=== PATIENT | male | born 1970 | race Caucasian/White ===

== ENCOUNTER 2017-11-19 16:16 | Emergency (ER) | payer SELFPAY ==
[2017-11-19] VITALS (15 sets, daily range): BP systolic 107–158; BP diastolic 30–83; PULSE 72–106; RESP 16–23; TEMP 36.9; O2SAT 90–100
--- NOTE | 2017-11-19 16:19 | DI.REPORT_ITS ---
SYMPTOM/DIAGNOSIS: TRAUMA CHEST X-RAY: Portable AP view. Heart size and pulmonary vasculature are within normal limits. The lungs appear clear. No effusions or pneumothoraces are identified. The bones appear intact. IMPRESSION: No definite acute pulmonary process.
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
[2017-11-19 16:51] LABS: Abs Immature Grans 0.05 k/cumm (0.0-0.09); Absolute Basophil Count 0.05 k/cumm (0.0-0.2); Absolute Eosinophil Count 0.16 k/cumm (0.0-0.7); Absolute Lymphocyte Count 3.45 k/cumm (1.2-3.4); Absolute Monocyte Count 0.88 k/cumm (0.11-0.7); Absolute Neutrophil Count 3.89 k/cumm (1.2-6.7); Basophils % 0.6; Eosinophils % 1.9; HCT 40.1 % (40.0-50.0); Immature Grans % 0.6; Lymphocytes % 40.7; Mean Corp. HGB Concentration 34.9 g/dL (32.0-36.0); Mean Corpuscular Hemoglobin 35.5 pg (27.0-33.0); Mean Corpuscular Volume 101.8 fL (80-95); Monocytes % 10.4; Neutrophils % 45.8; Platelet Count 178 x1000/uL (130-400); RBC 3.94 m/cumm (4.50-6.00); RBC Distribution Width 13.5 % (11.8-14.1); White Blood Cell Count 8.48 k/cumm (4.4-10.8)
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
[2017-11-19 17:13] LABS: ALT 54 U/L (12-78); AST 51 U/L (15-37); Albumin 3.6 g/dL (3.4-5.0); Alkaline Phosphatase 105 U/L (46-116); Amylase 36 U/L (25-115); Anion Gap 10.5 mmol/L (3-11); BUN 7 mg/dL (7-18); Bilirubin, Total 0.4 mg/dL (0.2-1.0); CO2 24.5 mmol/L (21.0-32.0); CREATININE 0.78 mg/dL (0.70-1.30); Calcium 8.2 mg/dL (8.5-10.1); Chloride 101 mmol/L (98-107); ETHANOL BLOOD 269.2 mg/dL (<3); Glucose 90 mg/dL (70-100); Lipase 142 U/L (73-393); Magnesium 2.1 mg/dL (1.8-2.4); Potassium 3.8 mmol/L (3.5-5.1); Sodium 136 mmol/L (136-145); Total Protein 7.2 g/dL (6.4-8.2)
[2017-11-19 17:15] LABS: Troponin I < 0.02 ng/mL (0.00-0.06)
[2017-11-19] MEDS: Tetanus & Diphtheria Tox,ADULT 0.5 ML VIAL IM (17:34)
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
[2017-11-19] MEDS: Omnipaque 350 MG/ML 100 ML BTL IJ (17:40)
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
[2017-11-19 18:06] LABS: Bilirubin Negative (Negative); Blood Trace-lysed (Negative); Clarity Clear; Glucose Negative (Negative); Ketones Negative (Negative); Leukocyte Esterase Negative (Negative); Nitrite Negative (Negative); Specific Gravity <= 1.005 (1.005-1.025); Urobilinogen 0.2 EU/dL (Up TO 0.2); pH 5.5 (5-8)
[2017-11-19 18:18] LABS: *AMPHETAMINES SCREEN URINE Negative (Negative); *BARBITURATES SCREEN URINE Negative (Negative); *BENZODIAZEPINES SCREEN URINE Negative (Negative); Cannabinoids THC POSITIVE (Negative); Cocaine Screen,Urine Negative (Negative); METHADONE URINE SCREEN Negative (Negative); OPIATES URINE SCREEN Negative (Negative)
[2017-11-19 18:19] LABS: Tricyclic Antidepressants Negative (Negative)
[2017-11-19 18:25] LABS: Bacteria Negative HPF (Negative); C & S Indicated? No; Casts Negative LPF (Negative); Crystals Negative HPF (Negative); Epithelial Cells Negative HPF (Negative); Mucus Negative (Negative); Other Cells Negative (Negative); RBC Negative (0-2); WBC Negative HPF (0-5)
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
== END 2017-11-19 20:29 | disposition short-term general hospital (02) ==
LOC: ER 02-22 04:54
PROVIDERS: Emergency Provider Student in an Organized Health Care Education/Training Program
DX: S39.91XA Unspecified injury of abdomen, initial encounter (principal); R93.3 Abnormal findings on diagnostic imaging of other parts of digestive tract; S30.1XXA Contusion of abdominal wall, initial encounter; S00.01XA Abrasion of scalp, initial encounter; T25.222A Burn of second degree of left foot, initial encounter; F10.129 Alcohol abuse with intoxication, unspecified; Y90.8 Blood alcohol level of 240 mg/100 ml or more; S80.211A Abrasion, right knee, initial encounter; S80.212A Abrasion, left knee, initial encounter; S50.311A Abrasion of right elbow, initial encounter; S50.312A Abrasion of left elbow, initial encounter; S60.512A Abrasion of left hand, initial encounter; S90.811A Abrasion, right foot, initial encounter; R40.2412 Glasgow coma scale score 13-15, at arrival to emergency department; V28.4XXA Motorcycle driver injured in noncollision transport accident in traffic accident, initial encounter; X19.XXXA Contact with other heat and hot substances, initial encounter
CPT/HCPCS: 36415; 74177; 80053; 80307; 83690; 86850; 86900; 86901; 90471; 93005; 96365; 96366; 99285; 70450; 71045; 71260; 72125; 80320; 81003; 81015; 82150; 83735; 84484; 85025; 93010; J0690; J3490

== ENCOUNTER 2024-10-12 15:08 | Inpatient (IN) | payer SELFPAY ==
[2024-10-12] VITALS (70 sets, daily range): BP systolic 107–150; BP diastolic 45–124; PULSE 76–98; RESP 11–24; TEMP 36.6; O2SAT 81–100
--- NOTE | 2024-10-12 15:44 | DI.CT_ITS ---
Exam(s) CT ABD AORTA CTA W RUNOFF EXAM: CT ABD AORTA CTA W RUNOFF CLINICAL HISTORY: chronic wound, h/o PVD. TECHNIQUE: Imaging Protocol: Axial CT angiography was performed with multi- slice acquisition and multi-planar and/or 3D reconstructions. CONTRAST MATERIAL: Intravenous: Omnipaque 350 Contrast volume:100 ml Contrast route:IV - Oral: yes / no COMPARISON: CT RIGHT LOWER EXTREM WO CONTRAST from 03/21/2017 CT CHEST ABD PELVIS WITH CONTRAST from 11/19/2017 FINDINGS: Vascular Structures: Heart: Normal size. No visible coronary artery calcifications. Abdomen: Celiac Freedom/SMA: No evidence of stenosis. Renal Arteries: No evidence of stenosis. There is a single renal artery perfusing each kidney. Aorta: No aneurysm. No dissection. Moderate atherosclerotic changes. Pelvis: Iliac Arteries: No evidence of stenosis. Mild atherosclerotic changes Common Femoral Arteries: No evidence of stenosis. Mild atherosclerotic changes. Lower extremities: Right: Superficial Femoral: No evidence of stenosis. Mild atherosclerotic changes. Popliteal: No evidence of stenosis. Knee Trifurcation: No evidence of stenosis. Posterior Tibial: No evidence of stenosis. Peroneal: No evidence of stenosis. Dorsalis Pedis: No evidence of stenosis. Left: Common Femoral: No evidence of stenosis. Mild atherosclerotic changes. Superficial Femoral: No evidence of stenosis. Popliteal: No evidence of stenosis. Knee Trifurcation: No evidence of stenosis. Posterior Tibial: No evidence of stenosis. Peroneal: No evidence of stenosis. Dorsalis Pedis: No evidence of stenosis. Venous structures: The venous structures are not well opacified with IV contrast in due to the arterial phase imaging. There is some contrast seen in the left lower extremity veins. On a no fistula is identified. ABDOMEN PELVIS: Soft Tissues: Significant soft tissue edema throughout the left lower extremity, consistent with cellulitis. No focal abscess or gas collections. Lungs: Nonspecific scattered ground-glass opacities. Liver: Normal size. No measurable mass. Gallbladder and biliary tract: No radiodense calculus or dilation. Pancreas: Normal density, no abnormal calcifications or inflammatory process. Spleen: Normal. Kidneys: Normal size, contour and axis. No radiodense stones or obstructive uropathy. No masses seen. Adrenal glands: No masses seen. Aorta: Abdominal portion non-dilated. Bladder: Symmetric distention, no gross wall thickening. Bowel: No obstruction or bowel wall thickening. Sigmoid diverticulosis. No evidence of diverticulitis. The appendix is normal. Peritoneal cavity: No ascites, collection or mesenteric inflammatory response. Bones: Within normal limits. Reproductive: The prostate is mildly enlarged. Lymph nodes: Enlarged hyperemic lymph nodes in the left inguinal region as well as internal and external iliac chains. There also mildly enlarged left para- aortic and popliteal fossa IMPRESSION: Mild atherosclerotic changes without significant stenosis, aneurysm or dissection. Left lower extremity edema with left inguinal and iliac enlarged lymph nodes consistent with cellulitis. No visible abscess or gas collection. Mild ground-glass opacities in the lower lobes could indicate pneumonitis. The preliminary [facility] report was reviewed. RADIATION DOSE DELIVERED: Total DLP DATA REPOSITORY: All CT scans at this facility are submitted to the National Radiology Data Registry (NRDR) Dose Index Registry (DIR) with the [employer] (A[employer]). RADIATION OPTIMIZATION: All CT scans at this facility use at least one of these dose optimization techniques: automated exposure control; mA and/or kV adjustment per patient size (includes targeted exams where dose is matched to clinical indication); or iterative reconstruction.
--- NOTE | 2024-10-12 16:03 | ED.GENADUL_ITS ---
Discharge Plan Disposition Patient Disposition: Admit to [facility] Discharge Details Clinical Impression: Cellulitis and abscess of left leg, Tobacco abuse, Pulmonary nodule, Venous stasis dermatitis, DVT (deep venous thrombosis), Portal hypertension, Hepatosplenomegaly, Hyponatremia, Hypomagnesemia, Hypokalemia, Homelessness Primary Care Provider: None,None ED Provider: Lien Duong Home Meds and New Rx's Prescriptions: No Action ibuprofen 600 MG tablet 600 mg PO Q6H PRN (Reason: Pain) Qty: 16 0RF HPI General Date/Time Provider Initiated Documentation: 10/12/24 15:29 . HPI Narrative: Chente is a 54-year-old male with history of varicose vein removal and poor circulation in legs who presents to the emergency dept today accompanied by exwife for evaluation of nonhealing left lower leg wound. No inciting wound/trauma. Noticed swelling in left leg 4-6 weeks ago accompanied by significant pain in back of calf, developed ulcer after removing compression wrap 3 weeks ago. Has been managing wound with Unna boot, changing every 3 days, but wound has not healed and recently began bleeding/draining clear fluid. Has swelling and pain to foot and leg below knee, no distal numbness/tingling. Denies systemic symptoms such as fevers or chills, decreased energy levels/general malaise, CP/SOB, recent immobility/surgery, hormone therapy, h/o blood clots or cancer, decreased appetite/change in bowel/bladder function. He does admit to weight loss attributed to unemployment and reduced physical activity. Smokes tobacco, no IV drug use or MRSA infections. Open to hospitalization or transfer to [facility] if necessary. Denies significant PMH other than vascular disease; has h/o similar ulcers on same leg, previously healed (says this is worse than previous wounds). He is unhoused per exwife. Related Data Home Medications ?Medication ?Instructions ?Recorded ?Confirmed ibuprofen 600 mg tablet 600 mg PO Q6H PRN Pain ##16 03/21/17 10/12/24 Previous Rx's ?Medication ?Instructions ?Recorded ibuprofen 600 mg tablet 600 mg PO Q6H PRN Pain ##16 03/21/17 Allergies Allergy/AdvReac Type Severity Reaction Status Date / Time No Known Allergies Allergy Verified 10/12/24 15:13 General Stated Complaint: Vascular TOM: 3 Exam Narrative Exam Narrative: General Appearance: Normal. Pt is alert and oriented, in no acute distress Vital signs: Within normal limits. Respiratory: Coarse lung sounds, easy work of breathing Cardiovascular:Leyda heart sounds, regular rate and rhythm. Palpable pulse in left foot, capillary refill time ~02s. Skin: Left calf red and swollen, wound oozing clear fluid and bloody. Psychiatric: Normal. Course Vital Signs Vital signs: Vital Signs Temperature 36.6 C 10/12/24 15:14 Pulse 90 10/12/24 15:14 Respiratory Rate 18 10/12/24 15:14 Blood Pressure 129/80 10/12/24 15:14 Pulse Oximetry 99 10/12/24 15:14 Temperature 36.6 C 10/12/24 15:14 Pulse 90 10/12/24 15:14 Respiratory Rate 18 10/12/24 15:14 Blood Pressure 129/80 10/12/24 15:14 Blood Pressure Position Sitting 10/12/24 15:14 Pulse Oximetry 99 10/12/24 15:14 Oxygen Delivery Method Room Air 10/12/24 15:14 Oxygen Flow Rate 0 10/12/24 15:14 Pain Level 10 10/12/24 15:14 Lab/Test Results Lab/Test Results: 10/12/24 15:44 Blood Blood Culture - Pending 10/12/24 15:44 Blood Blood Culture - Pending Medical Decision Making Initial Assessment: 54-year-old male with left lower leg wound present for 3-4 weeks, treated with Unna boot. Initially healed but then started bleeding and oozing clear fluid. Significant pain in back of calf, red and swollen. Slight numbness in foot, but can still feel sensations. History of varicose veins and poor circulation in legs. Differential Diagnosis includes but is not limited to: venous ulcer, arterial insufficiency, coagulopathy, cellulitis. Patient does not meet sepsis criteria. No red flags concerning for necrotizing fasciitis based on timeline or history I independently interpreted the following tests: CBC notable for anemia (9.0/26.9), no leukocytosis. CMP notable for hyponatremia (126), hypochloremia (92), mild hypokalemia (3.4). Mild hypomagnesemia (1.4). Inflammatory markers slightly elevated (ESR 45, CRP 4.07) CT lower extremity with runoff significant for filling defects within the popliteal vein (DVT vs artifact), lymphadenopathy involving left lower extremity, edema/tissue swelling, portal vein enlargement consistent with portal hypertension, as well as hepatosplenomegaly. Patchy groundglass opacities/nodular densities also incidentally noted. IV fluids given for dehydration/hyponatremia. IV antibiotics (ceftriaxone) initiated as well. P.o. magnesium given for hypomagnesemia. Discussed case with Dr. Camarena, hospitalist. Patient to be admitted for treatment of electrolyte derangement and venous stasis ulcers/cellulitis. Patient is agreeable with plan of care. Patient consented to the use of [facility] Imaging Data Radiologic Study: Radiologist's impression: Addendum created by Alexey Serrano MD on 10/12/2024 6:06 PM Eastern Time ([place] & [place]): THIS REPORT CONTAINS FINDINGS THAT MAY BE CRITICAL TO PATIENT CARE. The findings were verbally communicated via telephone conference with LIEN DUONG at 6:06 PM EDT on 10/12/2024. The findings were acknowledged and understood. Initial Report created on 10/12/2024 6:06 PM Eastern Time ([place] & [place]): PROCEDURE INFORMATION: Exam: CTA Abdominal Aorta and Bilateral Lower Extremities (Run-off) With Contrast Exam date and time: 10/12/2024 4:45 PM Age: 54 years old Clinical indication: Condition or disease; Chronic wound, h/o pvd TECHNIQUE: Imaging protocol: Computed tomographic angiography of the of the abdominal aorta, pelvis and bilateral lower extremities with contrast. 3D rendering (Not supervised by radiologist): MIP and/or 3D reconstructed images were created by the technologist. COMPARISON: CT CHEST ABD PELVIS WITH CONTRAST 11/19/2017 4:50 PM FINDINGS: Aorta: The aorta demonstrates moderate atherosclerotic calcification. The abdominal aorta shows [id number] atherosclerosis with moderate atherosclerosis at its distal portion but otherwise is widely patent without evidence of significant occlusive or aneurysmal disease. Celiac trunk and mesenteric arteries: The celiac artery is widely patent without evidence of occlusive or aneurysmal disease. Superior mesenteric artery is widely patent without evidence of occlusive or aneurysmal disease.The inferior mesenteric artery is widely patent without evidence of occlusive or aneurysmal disease. Renal arteries: Single renal artery supplies the right kidney, is widely patent, without evidence of significant occlusive or aneurysmal disease. Single renal artery supplies the left kidney, is widely patent, without evidence of significant occlusive or aneurysmal disease. Right iliac arteries: The right common iliac artery, right internal iliac artery and right external iliac arteries show [id number]-kq-tyjcbvve atherosclerosis but otherwise are widely patent without evidence of significant occlusive or aneurysmal disease. Right femoral/popliteal arteries: The right common femoral artery, proximal right deep and superficial femoral arteries show mild atherosclerosis but otherwise are widely patent without evidence of significant occlusive or aneurysmal disease. The right superficial femoral artery is widely patent without evidence of thrombosis, intimal flap/dissection, pseudoaneurysm or aneurysmal dilatation. The right popliteal artery is widely patent without evidence of thrombosis, intimal flap/dissection, pseudoaneurysm or aneurysmal dilatation. Right infrapopliteal arteries: The right anterior tibial artery, the right common tibioperoneal trunk, the right peroneal artery and the right posterior tibial artery are widely patent without evidence of thrombosis, intimal flap/dissection, pseudoaneurysm or aneurysmal dilatation. Left iliac arteries: The left common iliac artery, left internal iliac artery and left external iliac arteries show [id number] atherosclerosis but otherwise are widely patent without evidence of significant occlusive or aneurysmal disease. Left femoral/popliteal arteries: The left common femoral artery, proximal left deep and superficial femoral arteries show mild atherosclerosis but otherwise are widely patent without evidence of significant occlusive or aneurysmal disease. The left superficial femoral artery is widely patent without evidence of thrombosis, intimal flap/dissection, pseudoaneurysm or aneurysmal dilatation. The left popliteal artery is widely patent without evidence of thrombosis, intimal flap/dissection, pseudoaneurysm or aneurysmal dilatation. Left infrapopliteal arteries: The left anterior tibial artery, the left common tibioperoneal trunk, the left peroneal artery and the left posterior tibial artery are widely patent without evidence of thrombosis, intimal flap/dissection, pseudoaneurysm or aneurysmal dilatation. Veins: The portal, mesenteric and splenic veins are patent.The inferior venacava appears normal. Filling defects within the left popliteal vein may represent flow artifact although acute deep venous thrombosis can not be excluded. Consider duplex Doppler for confirmation. Lungs: There are scattered patchy ground-glass opacities within the lungs. These findings are nonspecific and may represent hypoventilatory change,edema, hemorrhage, or an infectious/inflammatory process (acute or chronic). Focal ground-glass nodular density is present within the left upper lobe of the lung lingula and the left lower lobe of the lung best demonstrated on images 9 series 6 and image 1 series 6. For patients at low risk (minimal or absent history of smoking and of other known risk factors), recommend CT Chest at 3-6 months, then consider CT Chest at 18- 24 months. For patients at high risk (history of smoking or of other known risk factors), recommend CT Chest at 3-6 months, then CT Chest at 18-24 months. (Reference: Srikanth). There is heterogeneous attenuation of the pulmonary parenchyma, consistent with air trapping from underlying small airways disease. Moderate to severe emphysematous changes present within the left lower lobe of the lung. Heart: The cardiac structures are normal. Coronary arteries: No evidence of coronary artery atherosclerotic plaque or calcification. Liver: There are no focal liver lesions present. The liver is enlarged There is no evidence of intrahepatic or extrahepatic biliary ductal dilation. Gallbladder and biliary ducts: There is no evidence of biliary ductal dilation. The gallbladder is normal. There is no cholelitiasis, wall thickening or pericholecystic fluid to suggest cholecystitis. Pancreas: The pancreas is normal. Spleen: The spleen is enlarged. The spleen otherwise appears normal. Adrenal glands: The adrenal glands are normal. Kidneys and ureters: The kidneys are normal. Stomach and bowel: There is no evidence of intestinal obstruction. Appendix: A normal appendix is identified. There is no evidence of distention or periappendiceal inflammation to suggest appendicitis. Urinary bladder: The bladder is normal. Reproductive: The prostate gland demonstrates calcification and mild nonspecific enlargement. The seminal vesicles are normal. Intraperitoneal space: There is no free intraperitoneal air. There is no evidence of free intraperitoneal or pelvic fluid. Lymph nodes: There is lymphadenopathy involving the left lower extremity, left inguinal, left external iliac left internal iliac pelvic chains, periaortic and retroperitoneal lymph nodes. Bones/joints: No acute fracture. No dislocation. No evidence of osteomyelitis. Soft tissues: The right lower extremity soft tissues are unremarkable. The left lower extremity is increased in size. There is soft tissue edema and fluid present within the subcutaneous soft tissues of the left lower extremity. No definitive thick-walled focal abscess identified. No definitive enhancing There are multiple enlarged enhancing lymph nodes present within the left lower extremity extending into the left inguinal region and groin as well as the left external iliac chain and left internal iliac chain consistent with reactive lymphadenopathy and infection. There is evidence of hyperemia within the left lower extremity with increased venous return compared to the right leg. IMPRESSION: 1. Edema and soft tissue swelling with fluid and enlargement of the left lower extremity with hyperemia, lymphadenopathy consistent with longstanding infection hand cellulitis. No evidence of necrotizing fasciitis although MRI would be more sensitive study for this finding. 2. There is lymphadenopathy involving the left lower extremity, left inguinal, left external iliac left internal iliac pelvic chains, periaortic and retroperitoneal lymph nodes. 3. Filling defects within the popliteal vein may represent flow artifact although acute deep venous thrombosis can not be excluded. Consider duplex Doppler for confirmation. 4. There are scattered patchy ground-glass opacities within the lungs. These findings are nonspecific and may represent hypoventilatory change,edema, hemorrhage, or an infectious/inflammatory process (acute or chronic). 5. Focal ground-glass nodular density is present within the left upper lobe of the lung lingula and the left lower lobe of the lung best demonstrated on images 9 series 6 and image 1 series 6. For patients at low risk (minimal or absent history of smoking and of other known risk factors), recommend CT Chest at 3-6 months, then consider CT Chest at 18-24 months. For patients at high risk (history of smoking or of other known risk factors), recommend CT Chest at 3-6 months, then CT Chest at 18-24 months. (Reference: Srikanth). 6. There is heterogeneous attenuation of the pulmonary parenchyma, consistent with air trapping from underlying small airways disease. 7. There is hepatosplenomegaly. 8. The portal vein is enlarged measuring 18 mm consider portal hypertension. PFSH All Active Problems (Updated 10/12/24 @ 20:06 by Lien Rojas) Pulmonary nodule (Acute) Tobacco abuse (Chronic) Homelessness (Chronic) Hypokalemia (Acute) Hypomagnesemia (Acute) Hyponatremia (Acute) Hepatosplenomegaly (Chronic) Portal hypertension (Chronic) DVT (deep venous thrombosis) (Acute) Venous stasis dermatitis (Chronic) Cellulitis and abscess of left leg (Acute) Social History Smoking/Tobacco Use Status: Current every day Tobacco Type: cigarettes Tobacco: How many years used: 40 Smoking risk assessment performed?: Yes Alcohol Intake: current Alcohol Intake frequency: 0-2 drinks per day Alcohol type: beer Drug use: Occasionally Substance use type: marijuana, opiates and prescription drug Do you feel safe in your relationship?: Yes PAWSS Have you Been Recently Intoxicated or Drunk Within the Last 30 days?: No Have you Ever Experienced Previous Episodes of Alcohol Withdrawal?: No Have you ever Experienced Withdrawal Seizures?: No Have you ever Experienced Delirium Tremens(DT)s?: No Have you ever undergone Alcohol Rehabilitation Treatment (i.e, inpt ot outpatient treatment programs)?: No Have you ever Experienced Blackouts?: Yes Have you ever Combined Alcohol with other Downers within the last 90 days?: No Have you ever Combined Alcohol with any other Substance of Abuse during the last 90 days?: No Positive Blood Alcohol level on Presentation? [PCS.BAL]: Yes Evidence of Increased Autonomic Activity (i.e. HR>120, tremor, sweating, agitation, nausea)?: No Result: 2
[2024-10-12] MEDS: Omnipaque 350 MG/ML 100 ML BTL IJ (16:19)
[2024-10-12] MEDS: Omnipaque 350 MG/ML 50 ML BTL IJ (16:19)
[2024-10-12 16:20] LABS: Abs Immature Grans 0.12 10^3/uL (0.0-0.06); Absolute Basophil Count 0.04 10^3/uL (0.0-0.2); Absolute Eosinophil Count 0.08 10^3/uL (0.0-0.7); Absolute Lymphocyte Count 1.41 10^3/uL (1.2-3.4); Absolute Monocyte Count 0.62 10^3/uL (0.1-0.8); Absolute Neutrophil Count 7.16 10^3/uL (1.2-6.7); Basophils % 0.4 %; Eosinophils % 0.8 %; HCT 26.9 % (40.0-50.0); Immature Grans % 1.3 %; MCH 32.8 pg (27.0-33.0); MCHC 33.5 % (32.0-36.0); MCV 98 fL (80-95); MPV 9.7 fL (8.0-11.0); Monocytes % 6.6 %; Neutrophils % 75.9 %; Platelet Count 204 10^3/uL (130-400); RBC 2.74 10^6/uL (4.36-5.78); RDW 13.9 % (11.8-14.1); WBC 9.43 10^3/uL (4.4-10.8)
[2024-10-12] MEDS: Normal Saline - Diluent 50 ML VIAL IJ ×2 (16:20→16:21)
[2024-10-12 16:21] LABS: ESR 45 mm/hr (0-20)
[2024-10-12 16:36] LABS: ALT 31 U/L (16-63); AST 59 U/L (15-37); Albumin 1.6 g/dL (3.4-5.0); Alkaline Phosphatase 140 U/L (46-116); Anion Gap 5.8 mmol/L (3-11); BUN 12 mg/dL (7-18); Bilirubin, Total 0.6 mg/dL (0.2-1.0); C-Reactive Protein 4.07 mg/dL (<or=0.5); CO2 28.2 mmol/L (21.0-32.0); CREATININE 0.8 mg/dL (0.70-1.30); Calcium 7.6 mg/dL (8.5-10.1); Chloride 92 mmol/L (98-107); Estimated GFR 104.51 (mL/min/1.73m2); Glucose 94 mg/dL (74-106); Magnesium 1.3 mg/dL (1.8-2.4); Potassium 3.4 mmol/L (3.5-5.1); Sodium 126 mmol/L (136-145); Total Protein 9.1 g/dL (6.4-8.2)
--- NOTE | 2024-10-12 17:00 | RT.EKG_ITS ---
APPROVED REPORT Exam: Resting ECG Reason for Exam: electrolyte derangement Patient Location: E HR:84 bpm ECG Measurements Heart Rate 84 AXIS MA 160 P 92 QRSd 113 QRS 71 QT 386 T 74 QTc 457 Conclusion Sinus rhythm at a rate of 84 with normal intervals without acute ischemic change
[2024-10-12 17:12] LABS: INR 1.2 (0.9-1.1); PTT Activated 30.4 sec (20.6-30.2); Prothrombin Time 12.2 sec (9.1-11.1)
[2024-10-12] MEDS: Normal Saline 1,000 ML 500 ML IV (17:22)
[2024-10-12] MEDS: Magnesium Oxide 400 MG TAB PO (17:22)
--- NOTE | 2024-10-12 18:06 | DI.VRAD_ITS ---
Addendum created by Alexey Serrano MD on 10/12/2024 6:06:27 PM EDT: THIS REPORT CONTAINS FINDINGS THAT MAY BE CRITICAL TO PATIENT CARE. The findings were verbally communicated via telephone conference with WILBERTO ESTES at 6:06 PM EDT on 10/12/2024. The findings were acknowledged and understood. Initial report created on 10/12/2024 6:06:12 PM EDT: PROCEDURE INFORMATION: Exam: CTA Abdominal Aorta and Bilateral Lower Extremities (Run-off) With Contrast Exam date and time: 10/12/2024 4:45 PM Age: 54 years old Clinical indication: Condition or disease; Chronic wound, h/o pvd TECHNIQUE: Imaging protocol: Computed tomographic angiography of the of the abdominal aorta, pelvis and bilateral lower extremities with contrast. 3D rendering (Not supervised by radiologist): MIP and/or 3D reconstructed images were created by the technologist. COMPARISON: CT CHEST ABD PELVIS WITH CONTRAST 11/19/2017 4:50 PM FINDINGS: Aorta: The aorta demonstrates moderate atherosclerotic calcification. The abdominal aorta shows [id number] atherosclerosis with moderate atherosclerosis at its distal portion but otherwise is widely patent without evidence of significant occlusive or aneurysmal disease. Celiac trunk and mesenteric arteries: The celiac artery is widely patent without evidence of occlusive or aneurysmal disease. Superior mesenteric artery is widely patent without evidence of occlusive or aneurysmal disease.The inferior mesenteric artery is widely patent without evidence of occlusive or aneurysmal disease. Renal arteries: Single renal artery supplies the right kidney, is widely patent, without evidence of significant occlusive or aneurysmal disease. Single renal artery supplies the left kidney, is widely patent, without evidence of significant occlusive or aneurysmal disease. Right iliac arteries: The right common iliac artery, right internal iliac artery and right external iliac arteries show [id number] atherosclerosis but otherwise are widely patent without evidence of significant occlusive or aneurysmal disease. Right femoral/popliteal arteries: The right common femoral artery, proximal right deep and superficial femoral arteries show mild atherosclerosis but otherwise are widely patent without evidence of significant occlusive or aneurysmal disease. The right superficial femoral artery is widely patent without evidence of thrombosis, intimal flap/dissection, pseudoaneurysm or aneurysmal dilatation. The right popliteal artery is widely patent without evidence of thrombosis, intimal flap/dissection, pseudoaneurysm or aneurysmal dilatation. Right infrapopliteal arteries: The right anterior tibial artery, the right common tibioperoneal trunk, the right peroneal artery and the right posterior tibial artery are widely patent without evidence of thrombosis, intimal flap/dissection, pseudoaneurysm or aneurysmal dilatation. Left iliac arteries: The left common iliac artery, left internal iliac artery and left external iliac arteries show [id number] atherosclerosis but otherwise are widely patent without evidence of significant occlusive or aneurysmal disease. Left femoral/popliteal arteries: The left common femoral artery, proximal left deep and superficial femoral arteries show mild atherosclerosis but otherwise are widely patent without evidence of significant occlusive or aneurysmal disease. The left superficial femoral artery is widely patent without evidence of thrombosis, intimal flap/dissection, pseudoaneurysm or aneurysmal dilatation. The left popliteal artery is widely patent without evidence of thrombosis, intimal flap/dissection, pseudoaneurysm or aneurysmal dilatation. Left infrapopliteal arteries: The left anterior tibial artery, the left common tibioperoneal trunk, the left peroneal artery and the left posterior tibial artery are widely patent without evidence of thrombosis, intimal flap/dissection, pseudoaneurysm or aneurysmal dilatation. Veins: The portal, mesenteric and splenic veins are patent.The inferior venacava appears normal. Filling defects within the left popliteal vein may represent flow artifact although acute deep venous thrombosis can not be excluded. Consider duplex Doppler for confirmation. Lungs: There are scattered patchy ground-glass opacities within the lungs. These findings are nonspecific and may represent hypoventilatory change,edema, hemorrhage, or an infectious/inflammatory process (acute or chronic). Focal ground-glass nodular density is present within the left upper lobe of the lung lingula and the left lower lobe of the lung best demonstrated on images 9 series 6 and image 1 series 6. For patients at low risk (minimal or absent history of smoking and of other known risk factors), recommend CT Chest at 3-6 months, then consider CT Chest at 18-24 months. For patients at high risk (history of smoking or of other known risk factors), recommend CT Chest at 3-6 months, then CT Chest at 18-24 months. (Reference: Srikanth). There is heterogeneous attenuation of the pulmonary parenchyma, consistent with air trapping from underlying small airways disease. Moderate to severe emphysematous changes present within the left lower lobe of the lung. Heart: The cardiac structures are normal. Coronary arteries: No evidence of coronary artery atherosclerotic plaque or calcification. Liver: There are no focal liver lesions present. The liver is enlarged There is no evidence of intrahepatic or extrahepatic biliary ductal dilation. Gallbladder and biliary ducts: There is no evidence of biliary ductal dilation. The gallbladder is normal. There is no cholelitiasis, wall thickening or pericholecystic fluid to suggest cholecystitis. Pancreas: The pancreas is normal. Spleen: The spleen is enlarged. The spleen otherwise appears normal. Adrenal glands: The adrenal glands are normal. Kidneys and ureters: The kidneys are normal. Stomach and bowel: There is no evidence of intestinal obstruction. Appendix: A normal appendix is identified. There is no evidence of distention or periappendiceal inflammation to suggest appendicitis. Urinary bladder: The bladder is normal. Reproductive: The prostate gland demonstrates calcification and mild nonspecific enlargement. The seminal vesicles are normal. Intraperitoneal space: There is no free intraperitoneal air. There is no evidence of free intraperitoneal or pelvic fluid. Lymph nodes: There is lymphadenopathy involving the left lower extremity, left inguinal, left external iliac left internal iliac pelvic chains, periaortic and retroperitoneal lymph nodes. Bones/joints: No acute fracture. No dislocation. No evidence of osteomyelitis. Soft tissues: The right lower extremity soft tissues are unremarkable. The left lower extremity is increased in size. There is soft tissue edema and fluid present within the subcutaneous soft tissues of the left lower extremity. No definitive thick-walled focal abscess identified. No definitive enhancing There are multiple enlarged enhancing lymph nodes present within the left lower extremity extending into the left inguinal region and groin as well as the left external iliac chain and left internal iliac chain consistent with reactive lymphadenopathy and infection. There is evidence of hyperemia within the left lower extremity with increased venous return compared to the right leg. IMPRESSION: 1. Edema and soft tissue swelling with fluid and enlargement of the left lower extremity with hyperemia, lymphadenopathy consistent with longstanding infection hand cellulitis. No evidence of necrotizing fasciitis although MRI would be more sensitive study for this finding. 2. There is lymphadenopathy involving the left lower extremity, left inguinal, left external iliac left internal iliac pelvic chains, periaortic and retroperitoneal lymph nodes. 3. Filling defects within the popliteal vein may represent flow artifact although acute deep venous thrombosis can not be excluded. Consider duplex Doppler for confirmation. 4. There are scattered patchy ground-glass opacities within the lungs. These findings are nonspecific and may represent hypoventilatory change,edema, hemorrhage, or an infectious/inflammatory process (acute or chronic). 5. Focal ground-glass nodular density is present within the left upper lobe of the lung lingula and the left lower lobe of the lung best demonstrated on images 9 series 6 and image 1 series 6. For patients at low risk (minimal or absent history of smoking and of other known risk factors), recommend CT Chest at 3-6 months, then consider CT Chest at 18-24 months. For patients at high risk (history of smoking or of other known risk factors), recommend CT Chest at 3-6 months, then CT Chest at 18-24 months. (Reference: Srikanth). 6. There is heterogeneous attenuation of the pulmonary parenchyma, consistent with air trapping from underlying small airways disease. 7. There is hepatosplenomegaly. 8. The portal vein is enlarged measuring 18 mm consider portal hypertension. REFERENCES: Srikanth Rasmussen, et al. Guidelines for Management of Incidental Pulmonary Nodules Detected on CT Images: From the Fleischner Society 2017. Radiology. 2017;284(1):228-243. Dictated and Authenticated by: Alexey Serrano MD. Orderin Deven Emmanuel MD
--- NOTE | 2024-10-12 18:24 | W.PM.HP.N ---
Date of service: 10/12/24 Time of Service: 18:24 Assessment and Plan Assessment and plan (1) Cellulitis and abscess of left leg: Start date: 10/12/24 Status: Acute Assessment and plan: This is a 54-year-old woman who has not seen a physician in a while who presents with nonhealing ulcer of his left lower extremity with chronic venous stasis. He does not have any systemic symptoms with a normal WBC and no fever. He does have pain but imaging did not suggest fasciitis. He does have probable chronic venous stasis which is poorly controlled. He is working daily according to the patient that works outside. He does drink alcohol daily and did have a low alcohol level upon admission. Urine drug screen was negative with no history of illicit drug use. Blood cultures were performed and patient was initiated on ceftriaxone. He will be admitted for wound care and continue IV antibiotic therapy expanding therapy if he is not responding. Chronically he will need to have better compression of his venous stasis in his legs. He has suggestion of a left popliteal DVT and will be treated with IV heparin infusion instead of Lovenox because of possibility of complication with GI bleed since he appears to have enlarged liver and spleen by imaging with portal hypertension. He may have alcoholic cirrhosis or acute alcoholic hepatitis. He may be out of process with lymphadenopathy though most of this is associated with his left lower extremity inflammation. Wound care will take care of the patient while hospitalized and long-term home care may be necessary. He is a full code. (2) DVT (deep venous thrombosis): Start date: 10/12/24 Status: Acute Assessment and plan: This is significant and not confirmed. IV heparin infusion and adjusting as needed especially if evidence of GI bleed with apparent portal hypertension and possible esophageal varices. There is no evidence of bleeding presently. Convert to oral therapy once patient is stable. This appears to be provoked if present because of chronic edema and recent infection with pain in the calf prior to ulcerative wound appeared. (3) Hyponatremia: Start date: 10/12/24 Status: Acute Assessment and plan: Most likely secondary to nutrition and chronic alcohol use. IV hydration and monitor while hospitalized. (4) Hypomagnesemia: Start date: 10/12/24 Status: Acute Assessment and plan: Most likely nutritional and associate with alcohol use daily. Replete and follow-up lab daily. (5) Hypokalemia: Start date: 10/12/24 Status: Acute Assessment and plan: Once again most likely nutritional and associated alcohol use. Follow-up lab in the morning with repletion IV. (6) Pulmonary nodule: Start date: 10/12/24 Status: Acute Assessment and plan: This is a nodule significant because the patient's tobacco use and will require follow-up. It may be inflammatory and patient is also being treated for possible inflammatory infiltrates with doxycycline along with Rocephin IV (7) Tobacco abuse: Status: Chronic Assessment and plan: Nicotine patch while hospitalized. Long-term should stop smoking. (8) Venous stasis dermatitis: Status: Chronic Assessment and plan: Low protein level and poor nutrition. Also patient has a history of varicose veins. Long-term she does have compression stockings and take better care of his skin. (9) Portal hypertension: Status: Chronic Assessment and plan: Likely associated with alcoholic hepatitis or cirrhosis chronically. She did establish with PCP and follow-up with GI for further evaluation and management. Cessation of alcohol would be appropriate.. (10) Hepatosplenomegaly: Status: Chronic Assessment and plan: This may be chronic and associate with alcohol use with portal hypertension. Patient could have another process and close monitoring with follow-up specialty care would be appropriate. 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 Patient states he does live with a friend presently. History of Present Illness History of Present Illness Chief Complaint: Swelling left lower extremity for 4 weeks treated with Unna boot, now ulcer Narrative: This is a 54-year-old male patient who is homeless but living with a friend working outside almost daily according to patient though his ex- said he was on the house and not working. He has a history of varicose veins in his left leg past been swollen in the past but responded to compression stockings. He had increased swelling with pain below his knee 3 to 4 weeks prior to this presentation and was treating it with a compression wrap and Unna boot with initial healing but now there is an ulcer which is nonhealing, open and draining clear fluid with some bloody material. It is worsening with swelling and pain. He denies any fever or chills. His left leg does swell more than his right leg. Both legs do have venous stasis changes but the left leg due to the one that has ulcers. It did respond to treatment in the past but is not responding to treatment presently. He does not mention being on antibiotics. He does drink alcohol almost daily. Not had alcohol withdrawal problems. He does not take illicit drugs. He has lost weight because of decreased food availability. He also does smoke tobacco daily. He denies any other acute problems. He has a full code. Review of Systems Narrative: 13 point review of systems otherwise unrevealing or stable. PFSH All Active Problems Pulmonary nodule (Acute) Tobacco abuse (Chronic) Homelessness (Chronic) Hypokalemia (Acute) Hypomagnesemia (Acute) Hyponatremia (Acute) Hepatosplenomegaly (Chronic) Portal hypertension (Chronic) DVT (deep venous thrombosis) (Acute) Venous stasis dermatitis (Chronic) Cellulitis and abscess of left leg (Acute) Social History Smoking/Tobacco Use Status: Current every day Tobacco Type: cigarettes Tobacco: How many years used: 40 Smoking risk assessment performed?: Yes Alcohol Intake: current Alcohol Intake frequency: 0-2 drinks per day Alcohol type: beer Drug use: Occasionally Substance use type: marijuana, opiates and prescription drug Do you feel safe in your relationship?: Yes Meds Allergies and Home Medications Allergies Allergy/AdvReac Type Severity Reaction Status Date / Time No Known Allergies Allergy Verified 10/12/24 15:13 Home Medications ?Medication ?Instructions ?Recorded ?Confirmed ?Type ibuprofen 600 mg tablet 600 mg PO Q6H PRN Pain ##16 03/21/17 10/12/24 Rx Exam Narrative Exam Narrative: General: Patient appears older than stated age, moderately obese over the trunk especially, alert and oriented x 3 and in no acute distress. HEENT: Normocephalic with coarsened facial features, eyes with pupils equal and reactive to light symmetrically, extraocular movement intact and sclera anicteric. Oropharynx with dry mucosa and poor dentition with most of his teeth missing and remaining teeth carious and fractured. Neck: Supple without JVD. Back: To posture without CVA tenderness. Lungs: Fair aeration with bronchovesicular breath sounds diffusely, no focalizing rales or rhonchi. No expiratory wheeze. Normal expiratory phase. Heart: Regular rate and rhythm with no murmurs or gallops appreciated. Abdomen: Mildly obese, soft and nontender to palpation with no palpable hepatosplenomegaly. No guarding or rebound. Bowel sounds positive all quadrants. Genitalia/rectal: Exam deferred. Extremities: 3+ nonpitting edema left lower extremity with erythema and almost ecchymotic areas over the ankle and foot and open ulcers extensively over the leg area and calf with dry bandage at the time my exam. (See picture in ED note) right leg with 1+ nonpitting edema but loss of hair and chronic venous stasis changes over the leg and foot. No cyanosis or clubbing. Fair capillary refill. Skin: Skin changes with ulcer over left leg and no ulcer but skin changes over right leg as mentioned. Otherwise darkly tanned diffusely, warm and dry. Neuro: Cranial nerves II through XII gross intact, no focal motor deficits and no tremor. Psych: Flat affect with depressed mood. No abnormal thought processes. Slow monotonous tone to voice. Remote and recent memory grossly intact. Results Imaging Imaging Studies: Exam: CTA Abdominal Aorta and Bilateral Lower Extremities (Run-off) With Contrast Exam date and time: 10/12/2024 4:45 PM Age: 54 years old Clinical indication: Condition or disease; Chronic wound, h/o pvd TECHNIQUE: Imaging protocol: Computed tomographic angiography of the of the abdominal aorta, pelvis and bilateral lower extremities with contrast. 3D rendering (Not supervised by radiologist): MIP and/or 3D reconstructed images were created by the technologist. COMPARISON: CT CHEST ABD PELVIS WITH CONTRAST 11/19/2017 4:50 PM FINDINGS: Aorta: The aorta demonstrates moderate atherosclerotic calcification. The abdominal aorta shows [id number] atherosclerosis with moderate atherosclerosis at its distal portion but otherwise is widely patent without evidence of significant occlusive or aneurysmal disease. Celiac trunk and mesenteric arteries: The celiac artery is widely patent without evidence of occlusive or aneurysmal disease. Superior mesenteric artery is widely patent without evidence of occlusive or aneurysmal disease.The inferior mesenteric artery is widely patent without evidence of occlusive or aneurysmal disease. Renal arteries: Single renal artery supplies the right kidney, is widely patent, without evidence of significant occlusive or aneurysmal disease. Single renal artery supplies the left kidney, is widely patent, without evidence of significant occlusive or aneurysmal disease. Right iliac arteries: The right common iliac artery, right internal iliac artery and right external iliac arteries show [id number] atherosclerosis but otherwise are widely patent without evidence of significant occlusive or aneurysmal disease. Right femoral/popliteal arteries: The right common femoral artery, proximal right deep and superficial femoral arteries show mild atherosclerosis but otherwise are widely patent without evidence of significant occlusive or aneurysmal disease. The right superficial femoral artery is widely patent without evidence of thrombosis, intimal flap/dissection, pseudoaneurysm or aneurysmal dilatation. The right popliteal artery is widely patent without evidence of thrombosis, intimal flap/dissection, pseudoaneurysm or aneurysmal dilatation. Right infrapopliteal arteries: The right anterior tibial artery, the right common tibioperoneal trunk, the right peroneal artery and the right posterior tibial artery are widely patent without evidence of thrombosis, intimal flap/dissection, pseudoaneurysm or aneurysmal dilatation. Left iliac arteries: The left common iliac artery, left internal iliac artery and left external iliac arteries show [id number] atherosclerosis but otherwise are widely patent without evidence of significant occlusive or aneurysmal disease. Left femoral/popliteal arteries: The left common femoral artery, proximal left deep and superficial femoral arteries show mild atherosclerosis but otherwise are widely patent without evidence of significant occlusive or aneurysmal disease. The left superficial femoral artery is widely patent without evidence of thrombosis, intimal flap/dissection, pseudoaneurysm or aneurysmal dilatation. The left popliteal artery is widely patent without evidence of thrombosis, intimal flap/dissection, pseudoaneurysm or aneurysmal dilatation. Left infrapopliteal arteries: The left anterior tibial artery, the left common tibioperoneal trunk, the left peroneal artery and the left posterior tibial artery are widely patent without evidence of thrombosis, intimal flap/dissection, pseudoaneurysm or aneurysmal dilatation. Veins: The portal, mesenteric and splenic veins are patent.The inferior venacava appears normal. Filling defects within the left popliteal vein may represent flow artifact although acute deep venous thrombosis can not be excluded. Consider duplex Doppler for confirmation. Lungs: There are scattered patchy ground-glass opacities within the lungs. These findings are nonspecific and may represent hypoventilatory change,edema, hemorrhage, or an infectious/inflammatory process (acute or chronic). Focal ground-glass nodular density is present within the left upper lobe of the lung lingula and the left lower lobe of the lung best demonstrated on images 9 series 6 and image 1 series 6. For patients at low risk (minimal or absent history of smoking and of other known risk factors), recommend CT Chest at 3-6 months, then consider CT Chest at 18-24 months. For patients at high risk (history of smoking or of other known risk factors), recommend CT Chest at 3-6 months, then CT Chest at 18-24 months. (Reference: Srikanth). There is heterogeneous attenuation of the pulmonary parenchyma, consistent with air trapping from underlying small airways disease. Moderate to severe emphysematous changes present within the left lower lobe of the lung. Heart: The cardiac structures are normal. Coronary arteries: No evidence of coronary artery atherosclerotic plaque or calcification. Liver: There are no focal liver lesions present. The liver is enlarged There is no evidence of intrahepatic or extrahepatic biliary ductal dilation. Gallbladder and biliary ducts: There is no evidence of biliary ductal dilation. The gallbladder is normal. There is no cholelitiasis, wall thickening or pericholecystic fluid to suggest cholecystitis. Pancreas: The pancreas is normal. Spleen: The spleen is enlarged. The spleen otherwise appears normal. Adrenal glands: The adrenal glands are normal. Kidneys and ureters: The kidneys are normal. Stomach and bowel: There is no evidence of intestinal obstruction. Appendix: A normal appendix is identified. There is no evidence of distention or periappendiceal inflammation to suggest appendicitis. Urinary bladder: The bladder is normal. Reproductive: The prostate gland demonstrates calcification and mild nonspecific enlargement. The seminal vesicles are normal. Intraperitoneal space: There is no free intraperitoneal air. There is no evidence of free intraperitoneal or pelvic fluid. Lymph nodes: There is lymphadenopathy involving the left lower extremity, left inguinal, left external iliac left internal iliac pelvic chains, periaortic and retroperitoneal lymph nodes. Bones/joints: No acute fracture. No dislocation. No evidence of osteomyelitis. Soft tissues: The right lower extremity soft tissues are unremarkable. The left lower extremity is increased in size. There is soft tissue edema and fluid present within the subcutaneous soft tissues of the left lower extremity. No definitive thick-walled focal abscess identified. No definitive enhancing There are multiple enlarged enhancing lymph nodes present within the left lower extremity extending into the left inguinal region and groin as well as the left external iliac chain and left internal iliac chain consistent with reactive lymphadenopathy and infection. There is evidence of hyperemia within the left lower extremity with increased venous return compared to the right leg. IMPRESSION: 1. Edema and soft tissue swelling with fluid and enlargement of the left lower extremity with hyperemia, lymphadenopathy consistent with longstanding infection hand cellulitis. No evidence of necrotizing fasciitis although MRI would be more sensitive study for this finding. 2. There is lymphadenopathy involving the left lower extremity, left inguinal, left external iliac left internal iliac pelvic chains, periaortic and retroperitoneal lymph nodes. 3. Filling defects within the popliteal vein may represent flow artifact although acute deep venous thrombosis can not be excluded. Consider duplex Doppler for confirmation. 4. There are scattered patchy ground-glass opacities within the lungs. These findings are nonspecific and may represent hypoventilatory change,edema, hemorrhage, or an infectious/inflammatory process (acute or chronic). 5. Focal ground-glass nodular density is present within the left upper lobe of the lung lingula and the left lower lobe of the lung best demonstrated on images 9 series 6 and image 1 series 6. For patients at low risk (minimal or absent history of smoking and of other known risk factors), recommend CT Chest at 3-6 months, then consider CT Chest at 18-24 months. For patients at high risk (history of smoking or of other known risk factors), recommend CT Chest at 3-6 months, then CT Chest at 18-24 months. (Reference: Srikanth). 6. There is heterogeneous attenuation of the pulmonary parenchyma, consistent with air trapping from underlying small airways disease. 7. There is hepatosplenomegaly. 8. The portal vein is enlarged measuring 18 mm consider portal hypertension. Labs 10/13/24 03:50 10/13/24 03:50 Labs: Laboratory Results - last 24 hr 10/12/24 10/12/24 16:10 16:56 WBC 9.43 RBC 2.74 L Hgb 9.0 L Hct 26.9 L MCV 98 H MCH 32.8 MCHC 33.5 RDW 13.9 Plt Count 204 MPV 9.7 Immature Gran % 1.3 Neutrophils % 75.9 Lymphocytes % 15.0 Monocytes % 6.6 Eosinophils % 0.8 Basophils % 0.4 Nucleated RBC % 0.0 Absolute Neutrophils 7.16 H Absolute Lymphocytes 1.41 Absolute Monocytes 0.62 Absolute Eosinophils 0.08 Absolute Basophils 0.04 ESR 45 H PT 12.2 H INR 1.2 H APTT 30.4 H Sodium 126 L Potassium 3.4 L Chloride 92 L Carbon Dioxide 28.2 Anion Gap 5.8 BUN 12 Creatinine 0.8 Est GFR (CKD-EPI 2020) 104.51 Glucose 94 Calcium 7.6 L Magnesium 1.3 L Total Bilirubin 0.6 AST 59 H ALT 31 Alkaline Phosphatase 140 H C-Reactive Protein 4.07 H Total Protein 9.1 H Albumin 1.6 L Add-On Test Request Cancelled Last Vital Signs Temp 36.6 C 10/12/24 15:14 Pulse 82 10/12/24 17:31 Resp 12 10/12/24 17:31 BP 116/65 10/12/24 17:31 Pulse Ox 99 10/12/24 17:31 PAWSS Have you Been Recently Intoxicated or Drunk Within the Last 30 days?: No Have you Ever Experienced Previous Episodes of Alcohol Withdrawal?: No Have you ever Experienced Withdrawal Seizures?: No Have you ever Experienced Delirium Tremens(DT)s?: No Have you ever undergone Alcohol Rehabilitation Treatment (i.e, inpt ot outpatient treatment programs)?: No Have you ever Experienced Blackouts?: Yes Have you ever Combined Alcohol with other Downers within the last 90 days?: No Have you ever Combined Alcohol with any other Substance of Abuse during the last 90 days?: No Positive Blood Alcohol level on Presentation? [PCS.BAL]: Yes Evidence of Increased Autonomic Activity (i.e. HR>120, tremor, sweating, agitation, nausea)?: No Result: 2 Time Spent Time spent with Patient: >75 minutes Time was spent: preparing to see the patient(eg.review tests), obtaining and/or reviewing separately otained hiistory, ordering medications,tests, procedures, indepentently interpreting results, counseling the patient and care coordination
[2024-10-12 18:44] LABS: ETHANOL BLOOD 30.9 mg/dL (<10)
[2024-10-12 18:54] LABS: NT-proBNP 337 pg/mL (<300)
[2024-10-12] MEDS: Nicotine 4 MG GUM CH (18:56)
[2024-10-12] MEDS: Nicotine 21 MG/24 HR PATCH TD (18:56)
[2024-10-12] MEDS: cefTRIAXone 1 GM/50 ML BAG IVPB (18:56)
[2024-10-12 19:55] LABS: COVID-19 PCR Negative (Negative); Influenza A PCR Negative (Negative); Influenza B PCR Negative (Negative); RSV PCR Negative (Negative)
[2024-10-12 20:03] LABS: Source Nasopharynx
[2024-10-12 20:30] LABS: Bilirubin Negative (Negative); Blood Negative (Negative); Clarity Clear (Clear); Glucose Negative (Negative); Ketones Negative (Negative); Leukocyte Esterase Negative (Negative); Nitrite Negative (Negative); Specific Gravity <= 1.005 (1.005-1.025)
[2024-10-12 20:42] LABS: Bacteria Rare HPF (Negative); C & S Indicated? No; Casts Negative LPF (Negative); Crystals Negative HPF (Negative); Epithelial Cells Rare HPF (Negative); Mucus Moderate (Negative); Other Cells Rare Transitional (Negative); RBC 0-2 HPF (0-2); WBC 0-2 HPF (0-5)
[2024-10-12 20:45] LABS: *AMPHETAMINES SCREEN URINE Negative (Negative); *BARBITURATES SCREEN URINE Negative (Negative); *BENZODIAZEPINES SCREEN URINE Negative (Negative); Cannabinoids THC Negative (Negative); Cocaine Screen,Urine Negative (Negative); METHADONE URINE SCREEN Negative (Negative); OPIATES URINE SCREEN Negative (Negative)
[2024-10-12 20:51] LABS: Tricyclic Antidepressants Negative (Negative)
[2024-10-12] MEDS: Heparin in 0.45% NaCl 25,000 UNIT/250 ML BAG 14 UNIT IVINF (21:40)
[2024-10-12] MEDS: DOXYCYCLINE 100 MG in Normal Saline 100 ML IVPB (21:44)
[2024-10-12 22:00] LABS: HCT 24.2 % (40.0-50.0); HGB 8.2 g/dL (13.5-17.5); MCH 32.7 pg (27.0-33.0); MCHC 33.9 % (32.0-36.0); MCV 96 fL (80-95); MPV 9.8 fL (8.0-11.0); Platelet Count 173 10^3/uL (130-400); RBC 2.51 10^6/uL (4.36-5.78); RDW 13.9 % (11.8-14.1); RDW-SD 49.3 fL; WBC 6.92 10^3/uL (4.4-10.8)
[2024-10-12] MEDS: Lactated Ringers 1,000 ML 125 ML IV (22:11)
[2024-10-12] MEDS: MAGNESIUM SULFATE 4 GM/100 ML BAG IV_INF (22:11)
[2024-10-12] MEDS: POTASSIUM CHLORIDE 10 MEQ/100 ML BAG 100 MEQ IV_INF (22:42)
[2024-10-13] VITALS (99 sets, daily range): BP systolic 106–142; BP diastolic 45–102; PULSE 61–99; RESP 14–29; TEMP 36.8–37.5; O2SAT 97–100
[2024-10-13 04:10] LABS: HCT 23.6 % (40.0-50.0); MCH 33.3 pg (27.0-33.0); MCHC 33.9 % (32.0-36.0); MCV 98 fL (80-95); MPV 10.1 fL (8.0-11.0); Platelet Count 172 10^3/uL (130-400); RDW 14.1 % (11.8-14.1); RDW-SD 51.8 fL; WBC 7.35 10^3/uL (4.4-10.8)
[2024-10-13 04:15] LABS: INR 1.2 (0.9-1.1); Prothrombin Time 12.3 sec (9.1-11.1)
[2024-10-13 04:32] LABS: ALT 27 U/L (16-63); AST 57 U/L (15-37); Albumin 1.1 g/dL (3.4-5.0); Alkaline Phosphatase 110 U/L (46-116); BUN 11 mg/dL (7-18); Bilirubin, Total 0.4 mg/dL (0.2-1.0); CREATININE 0.7 mg/dL (0.70-1.30); Calcium 7.4 mg/dL (8.5-10.1); Chloride 99 mmol/L (98-107); Estimated GFR 108.82 (mL/min/1.73m2); Glucose 98 mg/dL (74-106); Magnesium 2.2 mg/dL (1.8-2.4); Sodium 129 mmol/L (136-145); Total Protein 7.5 g/dL (6.4-8.2)
[2024-10-13 04:58] LABS: PTT Activated > 155.0 sec (20.6-30.2)
[2024-10-13] MEDS: Nicotine 21 MG/24 HR PATCH TD (07:13)
[2024-10-13] MEDS: DOXYCYCLINE 100 MG in Normal Saline 100 ML IVPB (10:34)
--- NOTE | 2024-10-13 10:50 | PDOC.CMIN ---
Date of service: 10/13/24 Time of Service: 10:50 Care Management Initial Assmt Initial Assessment Reason for Hospitalization: leg wound Functional Status/Living Situation Patient Presentation: Percy was lying in bed when CM met with him. He stated that he is doing well today. He reported that he has had this wound on his leg for weeks, but it started bleeding, and he didn't feel that he could manage it at home, so he came to the ED for evaluation. He stated that he has not had a PCP in 11 years, but is agreeable to a referral for a hospital follow up with the energy operations vice president provider. He reported that he is living with friends in [facility] currently. He is not working, and is fairly independent, but does not drive. He stated that per MD, he would remain overnight and will have an ultrasound tomorrow. CM will send a referral to [facility] for insurance navigation. CM will continue to follow. Town of Residence: [place] Resides with: Other (unhoused, staying with friends) Significant Other/Family: Local Natural Supports: daughterZoë ex-, Addie Employment Status: Unemployed Instrumental Activities of Daily Living (ADLs): Independent Medications Medication Management: No Issues/Barriers identified Physical Functioning/Mobility Assistive Device: Unna Boot for leg wound Advance Directives Advance Directives: Do you have an Advance Directive: N 03/21/17, 13:27 AD On File at [facility]: N 03/21/17, 13:27 Date Asked 10/12/24 10/12/24, 15:18 AD Date Reviewed COLST On File at [facility] No 10/12/24, 15:18 COLST Date Scanned Code Status Resuscitation Status Full Code Insurance Coverage/Financial Issues Insurance: self pay Financial Issues: CM will send a [facility] referral for insurance navigation Care Team Visit Care Team Role Provider Type Raji Wesley MD MD [facility] STAFF PHYSICIAN None None Primary Care Provider [facility] STAFF PHYSICIAN Lien Rojas Emergency Provider NURSE PRACTITIONER Ramez Camarena Admit Provider NON-[facility] STAFF PHYSICIAN Attending Provider Discharge Potential Discharge Needs: PCP F/U Appt (hospital f/u with energy operations vice president provider- Shreya Brown) Anticipated Barriers to Discharge: None Identified Patient/Family Education Needs: Review discharge instructions, discuss Ask Me Three Transportation: Private vehicle Plan: Anticipate Percy will return home once medically cleared. He will be transported via private vehicle by family/friend vs [facility]. He will follow up with his PCP and discharge plan of care. CM will continue to follow. Social Determinants of Health Screening Social Determinants of health last assessed in clinic: 10/13/24 Will the Patient Participate in the Screening?: Yes Do you worry about having a steady place to live?: no Problems where you live: no known problems In the past 12 months, have you had to go without electric, gas, oil or water in your home?: no 1. Within the past 12 months, we worried whether our food would run out before we got money to buy more.: Don't know/refused 2. Within the past 12 months, the food we bought just didn't last and we didn't have money to get more.: Don't know/refused Has lack of transportation kept you from medical appointments or from doing things needed for daily living?: no Has anyone in your life made you feel unsafe or unsupported?: no How hard is it for you to pay for the very basics like food, housing, medical care, and heating? Would you say it is:: Not hard at all Do you want help finding or keeping work or a job?: I do not need or want help If for any reason you need help with day-to-day activities such as bathing, preparing meals, shopping, managing finances, etc., do you get the help you need?: I don?t need any help How often do you feel lonely or isolated from those around you?: Never Do you speak a language other than Macedonian at home?: No Does the patient want assistance with any of the above?: No PFSH All Active Problems (Updated 10/13/24 @ 12:13 by Raji Wesley MD) Chronic wound (Acute) Pulmonary nodule (Acute) Tobacco abuse (Chronic) Homelessness (Chronic) Hypokalemia (Acute) Hypomagnesemia (Acute) Hyponatremia (Acute) Hepatosplenomegaly (Chronic) Portal hypertension (Chronic) DVT (deep venous thrombosis) (Acute) Venous stasis dermatitis (Chronic) Cellulitis and abscess of left leg (Acute) Social History Smoking/Tobacco Use Status: Current every day Tobacco Type: cigarettes Tobacco: How many years used: 40 Smoking risk assessment performed?: Yes Alcohol Intake: current Alcohol Intake frequency: 0-2 drinks per day Alcohol type: beer Drug use: Occasionally Substance use type: marijuana, opiates and prescription drug Housing: homeless Do you feel safe in your relationship?: Yes
--- NOTE | 2024-10-13 11:26 | W.PC.ACHO ---
Registration Status: ADM IN Primary Language: Preferred Language: [place] ED Information & Data Chief Complaint Vascular 10/12/24 16:13 Triage Note Has wound on back of left 10/12/24 15:14 calf. Has been there for several weeks. Ex ( present) reports large weight loss as well. Pt has known vascular issues. Has no PCP. Denies any recent fevers. Wound has been draining and bleeding, has been over 10 years since tetanus. 01/24 pain in leg, took ibuprofen 6 hours SHIFT MGR. Most Recent Vital Signs Temperature 36.6 C 10/12/24 15:14 Pulse 84 10/13/24 06:50 Pulse 80 10/13/24 05:30 Respiratory Rate 21 10/13/24 06:50 Respiratory Effort Normal, Non-Labored 10/12/24 16:28 Respiratory Depth Normal 10/12/24 16:28 Respiratory Pattern Normal 10/13/24 02:11 Blood Pressure 120/73 10/13/24 02:46 Blood Pressure Mean 87 10/13/24 02:46 Blood Pressure Position Sitting 10/12/24 15:14 Pulse Oximetry 100 10/13/24 06:50 Oxygen Delivery Method Room Air 10/12/24 15:14 Oxygen Flow Rate 0 10/12/24 15:14 Pain Level 5 10/12/24 16:28 Allergies No Known Allergies Allergy (Verified 10/12/24 15:13) Precautions Isolation Contact precaution 10/12/24 15:20 Active Medications Generic Name Dose Route Start Last Admin Trade Name Freq PRN Reason Stop Dose Admin Heparin Sodium/Sodium Chloride 25,000 unit in 250 mls @ 14 mls/hr 10/12/24 21:29 10/13/24 06:02 IVINF 1,150 units/hr INFUSION KENNETH 11.5 mls/hr Protocol Titration 1,400 UNITS/HR Doxycycline Hyclate 100 mg/ 100 mls @ 100 mls/hr 10/12/24 21:30 10/13/24 10:34 Sodium Chloride IVPB 100 mls/hr Q12H KENNETH Administration Ringer's Solution 1,000 mls @ 125 mls/hr 10/12/24 21:45 10/13/24 06:18 IV Infused INFUSION KENNETH Infusion Iohexol 100 ml 10/12/24 16:30 10/12/24 16:19 Omnipaque 350 Mg/Ml 100 Ml Btl IJ 11/11/24 23:59 100 ml DIRECTED KENNETH Administration Iohexol 50 ml 10/12/24 17:00 10/12/24 16:19 Omnipaque 350 Mg/Ml 50 Ml Btl IJ 11/11/24 23:59 50 ml DIRECTED KENNETH Administration Nicotine 21 mg 10/12/24 21:40 10/13/24 07:13 Nicotine 21 Mg/24 Hr Patch TD 21 mg DAILY PRN PRN Administration Sodium Chloride 0 ml 10/12/24 20:00 10/12/24 20:13 Normal Saline Flush 10 Ml Syr IVP Not Given BID KENNETH IV IV Catheter Type [Right Peripheral IV Forearm] IV Catheter Type [Left Saline Lock Antecubital] IV Catheter Type [Right Saline Lock Antecubital] IV Catheter Gauge [Right 20 Forearm] IV Catheter Gauge [Left 20 Antecubital] IV Catheter Gauge [Right 18 Antecubital] Diet Orders Category Date Time Status Regular/Normal [DIET] Nutrition 10/13/24 Breakfast Active Diagnostics 10/13/24 10/13/24 10/13/24 Range/Units 15:45 09:45 03:50 WBC Cancelled Cancelled 7.35 (4.4-10.8) 10^3/uL RBC Cancelled Cancelled 2.40 L (4.36-5.78) 10^6/uL Hgb Cancelled Cancelled 8.0 L (13.5-17.5) g/dL Hct Cancelled Cancelled 23.6 L (40.0-50.0) % MCV Cancelled Cancelled 98 H (80-95) fL MCH Cancelled Cancelled 33.3 H (27.0-33.0) pg MCHC Cancelled Cancelled 33.9 (32.0-36.0) % RDW Cancelled Cancelled 14.1 (11.8-14.1) % Plt Count Cancelled Cancelled 172 (130-400) 10^3/uL MPV Cancelled Cancelled 10.1 (8.0-11.0) fL Immature Gran % % Neutrophils % % Lymphocytes % % Monocytes % % Eosinophils % % Basophils % % Nucleated RBC % (0.0-0.3) % Absolute Neutrophils (1.2-6.7) 10^3/uL Absolute Lymphocytes (1.2-3.4) 10^3/uL Absolute Monocytes (0.1-0.8) 10^3/uL Absolute Eosinophils (0.0-0.7) 10^3/uL Absolute Basophils (0.0-0.2) 10^3/uL ESR (0-20) mm/hr PT 12.3 H (9.1-11.1) sec INR 1.2 H (0.9-1.1) APTT (20.6-30.2) sec Sodium 129 L (136-145) mmol/L Potassium 4.0 (3.5-5.1) mmol/L Chloride 99 (98-107) mmol/L Carbon Dioxide 28.0 (21.0-32.0) mmol/L Anion Gap 2.0 L (3-11) mmol/L BUN 11 (7-18) mg/dL Creatinine 0.7 (0.70-1.30) mg/dL Est GFR (CKD-EPI 2020) 108.82 (mL/min/1.73m2) Glucose 98 (74-106) mg/dL Calcium 7.4 L (8.5-10.1) mg/dL Magnesium 2.2 (1.8-2.4) mg/dL Total Bilirubin 0.4 (0.2-1.0) mg/dL AST 57 H (15-37) U/L ALT 27 (16-63) U/L Alkaline Phosphatase 110 (46-116) U/L C-Reactive Protein (<or=0.5) mg/dL NT-Pro-B Natriuret Pep (<300) pg/mL Total Protein 7.5 (6.4-8.2) g/dL Albumin 1.1 L (3.4-5.0) g/dL Urine Color (Yellow) Urine Clarity (Clear) Urine pH (5-8) Ur Specific [place] (1.005-1.025) Urine Protein (Neg-Trace) mg/dL Urine Ketones (Negative) mg/dL Urine Blood (Negative) Urine Nitrite (Negative) Urine Bilirubin (Negative) Urine Urobilinogen (Up to 0.2) mg/dL Ur Leukocyte Esterase (Negative) Urine RBC (0-2) HPF Urine WBC (0-5) HPF Ur Epithelial Cells (Negative) HPF Urine Crystals (Negative) HPF Urine Bacteria (Negative) HPF Urine Casts (Negative) LPF Urine Mucus (Negative) Urine Other (Negative) Ur Culture Indicated? Urine Glucose (Negative) mg/dL Urine Opiates Screen (Negative) Urine Methadone Screen (Negative) Ur Barbiturates Screen (Negative) Ur Tricyclics Screen (Negative) Ur Amphetamines Screen (Negative) U Benzodiazepines Scrn (Negative) Urine Cocaine Screen (Negative) Ur THC Screen (Negative) Ethyl Alcohol (<10) mg/dL COVID-19 Source SARS-CoV-2 (PCR) (Negative) Influenza Type A (PCR) (Negative) Influenza Type B (PCR) (Negative) RSV (PCR) (Negative) Add-On Test Request 10/13/24 10/12/24 10/12/24 Range/Units 03:45 21:47 21:40 WBC 6.92 (4.4-10.8) 10^3/uL RBC 2.51 L (4.36-5.78) 10^6/uL Hgb 8.2 L (13.5-17.5) g/dL Hct 24.2 L (40.0-50.0) % MCV 96 H (80-95) fL MCH 32.7 (27.0-33.0) pg MCHC 33.9 (32.0-36.0) % RDW 13.9 (11.8-14.1) % Plt Count 173 (130-400) 10^3/uL MPV 9.8 (8.0-11.0) fL Immature Gran % % Neutrophils % % Lymphocytes % % Monocytes % % Eosinophils % % Basophils % % Nucleated RBC % (0.0-0.3) % Absolute Neutrophils (1.2-6.7) 10^3/uL Absolute Lymphocytes (1.2-3.4) 10^3/uL Absolute Monocytes (0.1-0.8) 10^3/uL Absolute Eosinophils (0.0-0.7) 10^3/uL Absolute Basophils (0.0-0.2) 10^3/uL ESR (0-20) mm/hr PT (9.1-11.1) sec INR (0.9-1.1) APTT > 155.0 H* (20.6-30.2) sec Sodium (136-145) mmol/L Potassium (3.5-5.1) mmol/L Chloride (98-107) mmol/L Carbon Dioxide (21.0-32.0) mmol/L Anion Gap (3-11) mmol/L BUN (7-18) mg/dL Creatinine (0.70-1.30) mg/dL Est GFR (CKD-EPI 2020) (mL/min/1.73m2) Glucose (74-106) mg/dL Calcium (8.5-10.1) mg/dL Magnesium (1.8-2.4) mg/dL Total Bilirubin (0.2-1.0) mg/dL AST (15-37) U/L ALT (16-63) U/L Alkaline Phosphatase (46-116) U/L C-Reactive Protein (<or=0.5) mg/dL NT-Pro-B Natriuret Pep (<300) pg/mL Total Protein (6.4-8.2) g/dL Albumin (3.4-5.0) g/dL Urine Color (Yellow) Urine Clarity (Clear) Urine pH (5-8) Ur Specific [place] (1.005-1.025) Urine Protein (Neg-Trace) mg/dL Urine Ketones (Negative) mg/dL Urine Blood (Negative) Urine Nitrite (Negative) Urine Bilirubin (Negative) Urine Urobilinogen (Up to 0.2) mg/dL Ur Leukocyte Esterase (Negative) Urine RBC (0-2) HPF Urine WBC (0-5) HPF Ur Epithelial Cells (Negative) HPF Urine Crystals (Negative) HPF Urine Bacteria (Negative) HPF Urine Casts (Negative) LPF Urine Mucus (Negative) Urine Other (Negative) Ur Culture Indicated? Urine Glucose (Negative) mg/dL Urine Opiates Screen (Negative) Urine Methadone Screen (Negative) Ur Barbiturates Screen (Negative) Ur Tricyclics Screen (Negative) Ur Amphetamines Screen (Negative) U Benzodiazepines Scrn (Negative) Urine Cocaine Screen (Negative) Ur THC Screen (Negative) Ethyl Alcohol (<10) mg/dL COVID-19 Source Cancelled SARS-CoV-2 (PCR) Cancelled (Negative) Influenza Type A (PCR) Cancelled (Negative) Influenza Type B (PCR) Cancelled (Negative) RSV (PCR) Cancelled (Negative) Add-On Test Request 10/12/24 10/12/24 10/12/24 Range/Units 20:20 19:11 16:56 WBC (4.4-10.8) 10^3/uL RBC (4.36-5.78) 10^6/uL Hgb (13.5-17.5) g/dL Hct (40.0-50.0) % MCV (80-95) fL MCH (27.0-33.0) pg MCHC (32.0-36.0) % RDW (11.8-14.1) % Plt Count (130-400) 10^3/uL MPV (8.0-11.0) fL Immature Gran % % Neutrophils % % Lymphocytes % % Monocytes % % Eosinophils % % Basophils % % Nucleated RBC % (0.0-0.3) % Absolute Neutrophils (1.2-6.7) 10^3/uL Absolute Lymphocytes (1.2-3.4) 10^3/uL Absolute Monocytes (0.1-0.8) 10^3/uL Absolute Eosinophils (0.0-0.7) 10^3/uL Absolute Basophils (0.0-0.2) 10^3/uL ESR (0-20) mm/hr PT (9.1-11.1) sec INR (0.9-1.1) APTT (20.6-30.2) sec Sodium (136-145) mmol/L Potassium (3.5-5.1) mmol/L Chloride (98-107) mmol/L Carbon Dioxide (21.0-32.0) mmol/L Anion Gap (3-11) mmol/L BUN (7-18) mg/dL Creatinine (0.70-1.30) mg/dL Est GFR (CKD-EPI 2020) (mL/min/1.73m2) Glucose (74-106) mg/dL Calcium (8.5-10.1) mg/dL Magnesium (1.8-2.4) mg/dL Total Bilirubin (0.2-1.0) mg/dL AST (15-37) U/L ALT (16-63) U/L Alkaline Phosphatase (46-116) U/L C-Reactive Protein (<or=0.5) mg/dL NT-Pro-B Natriuret Pep (<300) pg/mL Total Protein (6.4-8.2) g/dL Albumin (3.4-5.0) g/dL Urine Color Yellow (Yellow) Urine Clarity Clear (Clear) Urine pH 6.0 (5-8) Ur Specific [place] <= 1.005 (1.005-1.025) Urine Protein 30 H (Neg-Trace) mg/dL Urine Ketones Negative (Negative) mg/dL Urine Blood Negative (Negative) Urine Nitrite Negative (Negative) Urine Bilirubin Negative (Negative) Urine Urobilinogen 2.0 H (Up to 0.2) mg/dL Ur Leukocyte Esterase Negative (Negative) Urine RBC 0-2 (0-2) HPF Urine WBC 0-2 (0-5) HPF Ur Epithelial Cells Rare (Negative) HPF Urine Crystals Negative (Negative) HPF Urine Bacteria Rare (Negative) HPF Urine Casts Negative (Negative) LPF Urine Mucus Moderate (Negative) Urine Other Rare Transitional (Negative) Ur Culture Indicated? No Urine Glucose Negative (Negative) mg/dL Urine Opiates Screen Negative (Negative) Urine Methadone Screen Negative (Negative) Ur Barbiturates Screen Negative (Negative) Ur Tricyclics Screen Negative (Negative) Ur Amphetamines Screen Negative (Negative) U Benzodiazepines Scrn Negative (Negative) Urine Cocaine Screen Negative (Negative) Ur THC Screen Negative (Negative) Ethyl Alcohol (<10) mg/dL COVID-19 Source Nasopharynx SARS-CoV-2 (PCR) Negative (Negative) Influenza Type A (PCR) Negative (Negative) Influenza Type B (PCR) Negative (Negative) RSV (PCR) Negative (Negative) Add-On Test Request Cancelled 10/12/24 Range/Units 16:10 WBC 9.43 (4.4-10.8) 10^3/uL RBC 2.74 L (4.36-5.78) 10^6/uL Hgb 9.0 L (13.5-17.5) g/dL Hct 26.9 L (40.0-50.0) % MCV 98 H (80-95) fL MCH 32.8 (27.0-33.0) pg MCHC 33.5 (32.0-36.0) % RDW 13.9 (11.8-14.1) % Plt Count 204 (130-400) 10^3/uL MPV 9.7 (8.0-11.0) fL Immature Gran % 1.3 % Neutrophils % 75.9 % Lymphocytes % 15.0 % Monocytes % 6.6 % Eosinophils % 0.8 % Basophils % 0.4 % Nucleated RBC % 0.0 (0.0-0.3) % Absolute Neutrophils 7.16 H (1.2-6.7) 10^3/uL Absolute Lymphocytes 1.41 (1.2-3.4) 10^3/uL Absolute Monocytes 0.62 (0.1-0.8) 10^3/uL Absolute Eosinophils 0.08 (0.0-0.7) 10^3/uL Absolute Basophils 0.04 (0.0-0.2) 10^3/uL ESR 45 H (0-20) mm/hr PT 12.2 H (9.1-11.1) sec INR 1.2 H (0.9-1.1) APTT 30.4 H (20.6-30.2) sec Sodium 126 L (136-145) mmol/L Potassium 3.4 L (3.5-5.1) mmol/L Chloride 92 L (98-107) mmol/L Carbon Dioxide 28.2 (21.0-32.0) mmol/L Anion Gap 5.8 (3-11) mmol/L BUN 12 (7-18) mg/dL Creatinine 0.8 (0.70-1.30) mg/dL Est GFR (CKD-EPI 2020) 104.51 (mL/min/1.73m2) Glucose 94 (74-106) mg/dL Calcium 7.6 L (8.5-10.1) mg/dL Magnesium 1.3 L (1.8-2.4) mg/dL Total Bilirubin 0.6 (0.2-1.0) mg/dL AST 59 H (15-37) U/L ALT 31 (16-63) U/L Alkaline Phosphatase 140 H (46-116) U/L C-Reactive Protein 4.07 H (<or=0.5) mg/dL NT-Pro-B Natriuret Pep 337 H (<300) pg/mL Total Protein 9.1 H (6.4-8.2) g/dL Albumin 1.6 L (3.4-5.0) g/dL Urine Color (Yellow) Urine Clarity (Clear) Urine pH (5-8) Ur Specific [place] (1.005-1.025) Urine Protein (Neg-Trace) mg/dL Urine Ketones (Negative) mg/dL Urine Blood (Negative) Urine Nitrite (Negative) Urine Bilirubin (Negative) Urine Urobilinogen (Up to 0.2) mg/dL Ur Leukocyte Esterase (Negative) Urine RBC (0-2) HPF Urine WBC (0-5) HPF Ur Epithelial Cells (Negative) HPF Urine Crystals (Negative) HPF Urine Bacteria (Negative) HPF Urine Casts (Negative) LPF Urine Mucus (Negative) Urine Other (Negative) Ur Culture Indicated? Urine Glucose (Negative) mg/dL Urine Opiates Screen (Negative) Urine Methadone Screen (Negative) Ur Barbiturates Screen (Negative) Ur Tricyclics Screen (Negative) Ur Amphetamines Screen (Negative) U Benzodiazepines Scrn (Negative) Urine Cocaine Screen (Negative) Ur THC Screen (Negative) Ethyl Alcohol 30.9 H (<10) mg/dL COVID-19 Source SARS-CoV-2 (PCR) (Negative) Influenza Type A (PCR) (Negative) Influenza Type B (PCR) (Negative) RSV (PCR) (Negative) Add-On Test Request 10/12/24 16:01 Blood Culture - Pending Blood 10/12/24 16:09 Blood Culture - Pending Blood Intake and Output - 24 Hour Total 10/12/24 15:08 thru 10/13/24 10:38 Intake Total 2461.967 Output Total 500 Balance 1961.967 Weight 71 kg Intake: IV 2461.967 Output: Urine 500 Falls Risk Assessment History of Falls No History 10/12/24 16:17 Contributing Factors No Factors 10/12/24 16:17 Ambulatory Aids Independent 10/12/24 16:17 Tubes/Lines W/no contributing factors 10/12/24 16:17 Gait Evaluation No gait disturbance 10/12/24 16:17 Cognition No cognitive impairment 10/12/24 16:17 Fall Total Score 10 10/12/24 16:17 Level of Risk Standard/Low Risk 10/12/24 16:17 Problems (Last Reviewed 10/13/24 @ 06:03 by Ramez Camarena) Pulmonary nodule (Acute) Tobacco abuse (Chronic) Homelessness (Chronic) Hypokalemia (Acute) Hypomagnesemia (Acute) Hyponatremia (Acute) Hepatosplenomegaly (Chronic) Portal hypertension (Chronic) DVT (deep venous thrombosis) (Acute) Venous stasis dermatitis (Chronic) Cellulitis and abscess of left leg (Acute) v v v v v v v v v Sending and/or Receiving Nurses: Please use comment section below to note any information pertinent to the patient hand-off not included above. Information / Comments: report received all questions answered. Report received from: report received from Flower Vuong RN @ [phone]
--- NOTE | 2024-10-13 12:11 | W.PM.PROGNOT ---
Date of Service Date of service: 10/13/24 Time of Service: 12:11 Assessment and Plan Assessment and plan (1) DVT (deep venous thrombosis): Start date: 10/12/24 Status: Acute Assessment and plan: - As seen on CTA runoff and left popliteal - Discussed with general surgeon who does not believe that study is good enough quality to make this distinction However, patient has been started on heparin drip, and will continue until left lower extremity ultrasound could be performed tomorrow in 10/14/2024 - In the event patient does have a DVT he will be started on Eliquis for 3 months as this was provoked DVT (2) Chronic wound: Status: Acute Assessment and plan: - Initially admitted for concern of cellulitis - Upon reviewing image as well as patient's wound in person I discussed with general surgery she is in agreement that area is not infected as it has good beefy red tissue and granulation tissue all signs of healing, without surrounding erythema, no purulent drainage drainage, and patient is without leukocytosis or fever - Mildly elevated inflammatory markers alone are not indicative of infection and are in fact likely secondary to chronic nature of wound - Plan will be for patient to receive wound care during hospitalization and will be set up with outpatient wound services (3) Hyponatremia: Start date: 10/12/24 Status: Acute Assessment and plan: -Most likely secondary to nutrition and chronic alcohol use. -IV hydration and monitor while hospitalized. (4) Hypokalemia: Start date: 10/12/24 Status: Acute Assessment and plan: -replaced and improved as of AM 10/13 (5) Pulmonary nodule: Start date: 10/12/24 Status: Acute Assessment and plan: -This is a nodule significant because the patient's tobacco use and will require follow-up (6) Tobacco abuse: Status: Chronic Assessment and plan: -Nicotine patch while hospitalized. (7) Portal hypertension: Status: Chronic Assessment and plan: -Likely associated with alcoholic hepatitis or cirrhosis chronically. - -he did establish with PCP and follow-up with GI for further evaluation and management (8) Homelessness: Status: Chronic Assessment and plan: outpatient services director with case management to help with his situation if needed. Patient states he does live with a friend presently. Subjective Subjective Interval history since last seen: Patient states that he is doing well today. He also understands reason for discontinuing antibiotics and also agrees that his wound is not infected. He also appreciates a plan to set him up with wound care at discharge. Exam Narrative Exam Narrative: Well-appearing gentleman laying in bed in no acute distress, ANO x 4, heart regular rhythm, lungs good auscultation bilaterally, abdomen soft, nontender, nondistended, left lower extremity wrapped in bandage with mild nonpurulent drainage through bandage but without surrounding edema. Please see picture from emergency room provider note for clearest picture of wound which does not appear to have any purulence and has a good surrounding granulation tissue as signs of appropriate healing Objective Last Vital Signs Temp 98.2 F 10/13/24 11:46 Pulse 82 10/13/24 11:46 Resp 18 10/13/24 11:46 BP 106/70 10/13/24 11:46 Pulse Ox 100 10/13/24 11:46 Laboratory Results - last 24 hr 10/12/24 10/12/24 10/12/24 16:10 16:56 19:11 WBC 9.43 RBC 2.74 L Hgb 9.0 L Hct 26.9 L MCV 98 H MCH 32.8 MCHC 33.5 RDW 13.9 Plt Count 204 MPV 9.7 Immature Gran % 1.3 Neutrophils % 75.9 Lymphocytes % 15.0 Monocytes % 6.6 Eosinophils % 0.8 Basophils % 0.4 Nucleated RBC % 0.0 Absolute Neutrophils 7.16 H Absolute Lymphocytes 1.41 Absolute Monocytes 0.62 Absolute Eosinophils 0.08 Absolute Basophils 0.04 ESR 45 H PT 12.2 H INR 1.2 H APTT 30.4 H Sodium 126 L Potassium 3.4 L Chloride 92 L Carbon Dioxide 28.2 Anion Gap 5.8 BUN 12 Creatinine 0.8 Est GFR (CKD-EPI 2020) 104.51 Glucose 94 Calcium 7.6 L Magnesium 1.3 L Total Bilirubin 0.6 AST 59 H ALT 31 Alkaline Phosphatase 140 H C-Reactive Protein 4.07 H NT-Pro-B Natriuret Pep 337 H Total Protein 9.1 H Albumin 1.6 L Urine Color Urine Clarity Urine pH Ur Specific [place] Urine Protein Urine Ketones Urine Blood Urine Nitrite Urine Bilirubin Urine Urobilinogen Ur Leukocyte Esterase Urine RBC Urine WBC Ur Epithelial Cells Urine Crystals Urine Bacteria Urine Casts Urine Mucus Urine Other Ur Culture Indicated? Urine Glucose Urine Opiates Screen Urine Methadone Screen Ur Barbiturates Screen Ur Tricyclics Screen Ur Amphetamines Screen U Benzodiazepines Scrn Urine Cocaine Screen Ur THC Screen Ethyl Alcohol 30.9 H COVID-19 Source Nasopharynx SARS-CoV-2 (PCR) Negative Influenza Type A (PCR) Negative Influenza Type B (PCR) Negative RSV (PCR) Negative Add-On Test Request Cancelled 10/12/24 10/12/24 10/12/24 20:20 21:40 21:47 WBC 6.92 RBC 2.51 L Hgb 8.2 L Hct 24.2 L MCV 96 H MCH 32.7 MCHC 33.9 RDW 13.9 Plt Count 173 MPV 9.8 Immature Gran % Neutrophils % Lymphocytes % Monocytes % Eosinophils % Basophils % Nucleated RBC % Absolute Neutrophils Absolute Lymphocytes Absolute Monocytes Absolute Eosinophils Absolute Basophils ESR PT INR APTT Sodium Potassium Chloride Carbon Dioxide Anion Gap BUN Creatinine Est GFR (CKD-EPI 2020) Glucose Calcium Magnesium Total Bilirubin AST ALT Alkaline Phosphatase C-Reactive Protein NT-Pro-B Natriuret Pep Total Protein Albumin Urine Color Yellow Urine Clarity Clear Urine pH 6.0 Ur Specific [place] <= 1.005 Urine Protein 30 H Urine Ketones Negative Urine Blood Negative Urine Nitrite Negative Urine Bilirubin Negative Urine Urobilinogen 2.0 H Ur Leukocyte Esterase Negative Urine RBC 0-2 Urine WBC 0-2 Ur Epithelial Cells Rare Urine Crystals Negative Urine Bacteria Rare Urine Casts Negative Urine Mucus Moderate Urine Other Rare Transitional Ur Culture Indicated? No Urine Glucose Negative Urine Opiates Screen Negative Urine Methadone Screen Negative Ur Barbiturates Screen Negative Ur Tricyclics Screen Negative Ur Amphetamines Screen Negative U Benzodiazepines Scrn Negative Urine Cocaine Screen Negative Ur THC Screen Negative Ethyl Alcohol COVID-19 Source Cancelled SARS-CoV-2 (PCR) Cancelled Influenza Type A (PCR) Cancelled Influenza Type B (PCR) Cancelled RSV (PCR) Cancelled Add-On Test Request 10/13/24 10/13/24 10/13/24 03:45 03:50 09:45 WBC 7.35 Cancelled RBC 2.40 L Cancelled Hgb 8.0 L Cancelled Hct 23.6 L Cancelled MCV 98 H Cancelled MCH 33.3 H Cancelled MCHC 33.9 Cancelled RDW 14.1 Cancelled Plt Count 172 Cancelled MPV 10.1 Cancelled Immature Gran % Neutrophils % Lymphocytes % Monocytes % Eosinophils % Basophils % Nucleated RBC % Absolute Neutrophils Absolute Lymphocytes Absolute Monocytes Absolute Eosinophils Absolute Basophils ESR PT 12.3 H INR 1.2 H APTT > 155.0 H* Sodium 129 L Potassium 4.0 Chloride 99 Carbon Dioxide 28.0 Anion Gap 2.0 L BUN 11 Creatinine 0.7 Est GFR (CKD-EPI 2020) 108.82 Glucose 98 Calcium 7.4 L Magnesium 2.2 Total Bilirubin 0.4 AST 57 H ALT 27 Alkaline Phosphatase 110 C-Reactive Protein NT-Pro-B Natriuret Pep Total Protein 7.5 Albumin 1.1 L Urine Color Urine Clarity Urine pH Ur Specific [place] Urine Protein Urine Ketones Urine Blood Urine Nitrite Urine Bilirubin Urine Urobilinogen Ur Leukocyte Esterase Urine RBC Urine WBC Ur Epithelial Cells Urine Crystals Urine Bacteria Urine Casts Urine Mucus Urine Other Ur Culture Indicated? Urine Glucose Urine Opiates Screen Urine Methadone Screen Ur Barbiturates Screen Ur Tricyclics Screen Ur Amphetamines Screen U Benzodiazepines Scrn Urine Cocaine Screen Ur THC Screen Ethyl Alcohol COVID-19 Source SARS-CoV-2 (PCR) Influenza Type A (PCR) Influenza Type B (PCR) RSV (PCR) Add-On Test Request 10/13/24 15:45 WBC Cancelled RBC Cancelled Hgb Cancelled Hct Cancelled MCV Cancelled MCH Cancelled MCHC Cancelled RDW Cancelled Plt Count Cancelled MPV Cancelled Immature Gran % Neutrophils % Lymphocytes % Monocytes % Eosinophils % Basophils % Nucleated RBC % Absolute Neutrophils Absolute Lymphocytes Absolute Monocytes Absolute Eosinophils Absolute Basophils ESR PT INR APTT Sodium Potassium Chloride Carbon Dioxide Anion Gap BUN Creatinine Est GFR (CKD-EPI 2020) Glucose Calcium Magnesium Total Bilirubin AST ALT Alkaline Phosphatase C-Reactive Protein NT-Pro-B Natriuret Pep Total Protein Albumin Urine Color Urine Clarity Urine pH Ur Specific [place] Urine Protein Urine Ketones Urine Blood Urine Nitrite Urine Bilirubin Urine Urobilinogen Ur Leukocyte Esterase Urine RBC Urine WBC Ur Epithelial Cells Urine Crystals Urine Bacteria Urine Casts Urine Mucus Urine Other Ur Culture Indicated? Urine Glucose Urine Opiates Screen Urine Methadone Screen Ur Barbiturates Screen Ur Tricyclics Screen Ur Amphetamines Screen U Benzodiazepines Scrn Urine Cocaine Screen Ur THC Screen Ethyl Alcohol COVID-19 Source SARS-CoV-2 (PCR) Influenza Type A (PCR) Influenza Type B (PCR) RSV (PCR) Add-On Test Request PAWSS Have you Been Recently Intoxicated or Drunk Within the Last 30 days?: No Have you Ever Experienced Previous Episodes of Alcohol Withdrawal?: No Have you ever Experienced Withdrawal Seizures?: No Have you ever Experienced Delirium Tremens(DT)s?: No Have you ever undergone Alcohol Rehabilitation Treatment (i.e, inpt ot outpatient treatment programs)?: No Have you ever Experienced Blackouts?: No Have you ever Combined Alcohol with other Downers within the last 90 days?: No Have you ever Combined Alcohol with any other Substance of Abuse during the last 90 days?: No Positive Blood Alcohol level on Presentation? [PCS.BAL]: Yes Evidence of Increased Autonomic Activity (i.e. HR>120, tremor, sweating, agitation, nausea)?: No Result: 1 Time Spent with Patient Time Spent with Patient: >50 minutes Time was spent: preparing to see the patient(eg.review tests), obtaining and/or reviewing separately otained hiistory, ordering medications,tests, procedures, referring, communicating with other health care transitions nurse, indepentently interpreting results, counseling the patient and care coordination
[2024-10-13 12:51] LABS: TSH (W/Ref FT4) 1.87 uIU/mL (0.36-3.74)
[2024-10-13 12:54] LABS: PTT Activated 84.4 sec (20.6-30.2)
[2024-10-13] MEDS: Heparin in 0.45% NaCl 25,000 UNIT/250 ML BAG 10 UNIT IVINF (13:00)
[2024-10-13] MEDS: Acetaminophen 325 MG TAB PO (17:39)
[2024-10-13] MEDS: Nicotine 2 MG GUM CH (17:43)
[2024-10-13 19:27] LABS: PTT Activated 73.5 sec (20.6-30.2)
[2024-10-13] MEDS: Normal Saline Flush 10 ML SYR IVP (20:27)
[2024-10-14 00:24] VITALS: BP 114/72; PULSE 70; RESP 18; TEMP 36.5; O2SAT 99
[2024-10-14 01:51] LABS: PTT Activated 77.3 sec (20.6-30.2)
[2024-10-14] MEDS: Nicotine 2 MG GUM CH ×2 (05:47→10:48)
[2024-10-14 06:34] LABS: INR 1.2 (0.9-1.1); Prothrombin Time 12.1 sec (9.1-11.1)
[2024-10-14 06:41] LABS: ALT 33 U/L (16-63); AST 57 U/L (15-37); Albumin 1.1 g/dL (3.4-5.0); Alkaline Phosphatase 117 U/L (46-116); Anion Gap 2.9 mmol/L (3-11); BUN 7 mg/dL (7-18); Bilirubin, Total 0.4 mg/dL (0.2-1.0); CO2 29.1 mmol/L (21.0-32.0); CREATININE 0.6 mg/dL (0.70-1.30); Calcium 7.6 mg/dL (8.5-10.1); Chloride 101 mmol/L (98-107); Glucose 93 mg/dL (74-106); Magnesium 1.4 mg/dL (1.8-2.4); Potassium 3.8 mmol/L (3.5-5.1); Sodium 133 mmol/L (136-145); Total Protein 7.6 g/dL (6.4-8.2)
[2024-10-14 07:37] VITALS: BP 126/74; PULSE 84; TEMP 37.4; O2SAT 100
--- NOTE | 2024-10-14 08:00 | DI.US_ITS ---
Exam(s) US LOWER EXTREMITY VENOUS LT EXAM: US LOWER EXTREMITY VENOUS LT CLINICAL HISTORY: Suspect left popliteal DVT with chronic swelling.. TECHNIQUE: Lower extremity venous ultrasound performed using grayscale, color- flow, and spectral Doppler analysis. COMPARISON: No exams were available for comparison FINDINGS: The common femoral, femoral and popliteal veins demonstrate normal compressibility, augmentation, and color Doppler. The posterior tibial and peroneal veins are patent. No superficial venous thrombosis is seen. The saphenous which vein was not visualized. Patient states history of surgery. No hematoma or Raymundo's cyst is seen. IMPRESSION: Negative lower extremity ultrasound. No evidence of DVT. DATA REPOSITORY:
[2024-10-14] MEDS: Nicotine 21 MG/24 HR PATCH TD (08:27)
[2024-10-14] MEDS: Normal Saline Flush 10 ML SYR IVP (08:32)
--- NOTE | 2024-10-14 09:21 | PDOC.CMPRO ---
Date of service: 10/14/24 Time of Service: 09:21 Care Management Progress Note Discharge Potential Discharge Needs: Other (will need to establish with a PCP) Anticipated Barriers to Discharge: None Identified Patient/Family Education Needs: Review discharge instructions, discuss Ask Me Three Transportation: RCT Plan: Anticipate René will be discharged home with no new services when medically cleared. He will follow up levarh the director of cardiac rehabilitation provider and plan of care and transport via RCT. A referral has been sent to [facility] for assistance with insurance. CM will follow and continue to assess for dsicharge needs. Social Determinants of Health Screening Social Determinants of health last assessed in clinic: 10/13/24 Will the Patient Participate in the Screening?: Unable to obtain Do you worry about having a steady place to live?: no Problems where you live: no known problems In the past 12 months, have you had to go without electric, gas, oil or water in your home?: no Has lack of transportation kept you from medical appointments or from doing things needed for daily living?: no Has anyone in your life made you feel unsafe or unsupported?: no How hard is it for you to pay for the very basics like food, housing, medical care, and heating? Would you say it is:: Not hard at all Do you want help finding or keeping work or a job?: I do not need or want help If for any reason you need help with day-to-day activities such as bathing, preparing meals, shopping, managing finances, etc., do you get the help you need?: I don?t need any help How often do you feel lonely or isolated from those around you?: Never Do you speak a language other than [place] at home?: No Does the patient want assistance with any of the above?: No
[2024-10-14] MEDS: Acetaminophen 325 MG TAB PO (09:24)
--- NOTE | 2024-10-14 10:11 | PDOC.HHF2F ---
Home Health Referral Home Health Orders Clinical synopsis of why skilled professionals are needed: Peripheral vascular disease, chronic left lower extremity wound Registered Nurse: Check all that apply Assess wound for signs and symptoms of infection, instruct on wound care and/or provide skilled wound care consisting of: Dressing changes, unna boot Encounter Date and Reason: I certify that a FTF encounter for this patient was performed on October 14, 2024 and that such encounter was related to the primary reason the patient requires home health services. The encounter was conducted in the following manner: By me as the certifying physician, LIFT TEAM TECHNICIAN, PA or By an inpatient physician, LIFT TEAM TECHNICIAN or PA during an inpatient stay who communicated findings to me, Certification And Authentication I certify that I composed the above information based on my clinical judgment relating to this patient's medical condition and, if applicable, clinical findings communicated to me by the NPP or inpatient physician who performed the FTF encounter.
--- NOTE | 2024-10-14 10:12 | DSE_ITS ---
Date of service: 10/14/24 Time of Service: 10:13 DS: Diagnosis Discharge Diagnosis (1) DVT (deep venous thrombosis): Status: Acute (2) Chronic wound: Status: Acute (3) Hyponatremia: Status: Acute (4) Hypokalemia: Status: Acute (5) Pulmonary nodule: Status: Acute (6) Tobacco abuse: Status: Chronic (7) Portal hypertension: Status: Chronic (8) Homelessness: Status: Chronic Discharge Plan Disposition Patient Disposition: Home W/Home Health Services Condition: Good Discharge Details Reason For Visit: Cellulitis LLE, Venous Stasis Dermatitis, Left Pop Admit Date/Time: 10/12/24 21:31 Admit Provider: Ramez Camarena Attending Provider: Ramez Camarena Primary Care Provider: None,Veronica Hospital Course Hospital Course: Patient initially presented with signs and symptoms concerning for cellulitis on top of his chronic left lower extremity wound. However, patient did not have infection as he did not have a white count, fever or any purulence from wound. Despite the size and nature of the wound, it is actually healing very well with good blood flow and granulation tissue. Antibiotics were discontinued. Additionally, CTA runoff showed question of left popliteal DVT but upon formal ultrasound no DVT was seen. Therefore, it was determined that patient was stable for discharge home and will have home health services for wound care assistance. Home Meds and New Rx's Prescriptions: Continued ibuprofen 600 MG tablet 600 mg PO Q6H PRN (Reason: Pain) Qty: 16 0RF Discharge Instructions Activity:: Activity as Tolerated Equipment/Supplies:: No Equipment Needed Diet:: As Tolerated Discharge Orders Discharge Orders: Discharge Order (Routine); Ordered 10/14/24 Ordered By: Raji Wesley DS: Summary Time Spent with Patient providing and/or coordinating discharge services: Greater than 30 minutes Status at Discharge Functional status at discharge: independent ambulation Overall status at discharge: patient is back to baseline Mental Status: mental status grossly normal Speech and Movement: speech and movement normal Mood: congruent mood Affect: normal affect Exam Narrative Exam Narrative: Well-appearing gentleman laying in bed in no acute distress, ANO x 4, heart regular rhythm, lungs good auscultation bilaterally, abdomen soft, nontender, nondistended, left lower extremity wrapped in bandage with mild nonpurulent drainage through bandage but without surrounding edema. Please see picture from emergency room provider note for clearest picture of wound which does not appear to have any purulence and has a good surrounding granulation tissue as signs of appropriate healing Psych Mental Status: mental status grossly normal Speech and Movement: speech and movement normal Mood: congruent mood Affect: normal affect DS: Data Vitals/I&O Vitals and I&O: Vital Signs Temperature 99.3 F 10/14/24 07:37 Temperature Source Temporal Artery Scan 10/14/24 07:37 Pulse 84 10/14/24 07:37 Pulse Rhythm Regular 10/13/24 11:50 Pulse 80 10/13/24 05:30 Respiratory Rate 18 10/14/24 00:24 Respiratory Effort Normal 10/13/24 11:50 Respiratory Depth Normal 10/13/24 11:50 Respiratory Pattern Normal 10/13/24 11:50 Blood Pressure 126/74 10/14/24 07:37 Blood Pressure Mean 91 10/14/24 07:37 Blood Pressure Position Sitting 10/12/24 15:14 Pulse Oximetry 100 10/14/24 07:37 Oxygen Delivery Method Room Air 10/14/24 07:37 Oxygen Flow Rate 0 10/14/24 07:37 Pain Level 4 10/14/24 09:24 Comment patient did not want to be woken up for vitals 10/14/24 04:58 Intake & Output 10/13/24 10/14/24 10/14/24 17:59 05:59 17:59 Intake Total 1180.117 / 1180.117 310.167 / 1490.284 Output Total 300 / 300 Balance 1180.117 / 1180.117 310.167 / 1490.284 -300 / -300 Weight 156 lb 8.451 oz 152 lb 8.958 oz Intake: IV 1180.117 / 1180.117 60.167 / 1240.284 Oral 250 / 250 Output: Urine 300 / 300 Other: Urine Color Yellow Comment independent Data Completed and Pending Labs on day of discharge: Labs from last 24 hours 10/14/24 10/14/24 10/13/24 05:50 01:26 19:07 PT 12.1 H INR 1.2 H APTT 77.3 H 73.5 H Sodium 133 L Potassium 3.8 Chloride 101 Carbon Dioxide 29.1 Anion Gap 2.9 L BUN 7 Creatinine 0.6 L Est GFR (CKD-EPI 2021) 114.00 Glucose 93 Calcium 7.6 L Magnesium 1.4 L Total Bilirubin 0.4 AST 57 H ALT 33 Alkaline Phosphatase 117 H Total Protein 7.6 Albumin 1.1 L TSH 10/13/24 12:15 PT INR APTT 84.4 H* Sodium Potassium Chloride Carbon Dioxide Anion Gap BUN Creatinine Est GFR (CKD-EPI 2020) Glucose Calcium Magnesium Total Bilirubin AST ALT Alkaline Phosphatase Total Protein Albumin TSH 1.87 Preliminary micro results at discharge 10/12/24 16:09 Blood Blood Culture - Preliminary NO GROWTH 24 HOURS 10/12/24 16:01 Blood Blood Culture - Preliminary NO GROWTH 24 HOURS PFSH All Active Problems (Updated 10/14/24 @ 10:11 by Raji Wesley MD) Chronic wound (Acute) Pulmonary nodule (Acute) Tobacco abuse (Chronic) Homelessness (Chronic) Hypokalemia (Acute) Hypomagnesemia (Acute) Hyponatremia (Acute) Hepatosplenomegaly (Chronic) Portal hypertension (Chronic) DVT (deep venous thrombosis) (Acute) Venous stasis dermatitis (Chronic) Cellulitis and abscess of left leg (Acute) Social History Smoking/Tobacco Use Status: Current every day Tobacco Type: cigarettes Tobacco: How many years used: 40 Smoking risk assessment performed?: Yes Alcohol Intake: current Alcohol Intake frequency: 0-2 drinks per day Alcohol type: beer Drug use: Occasionally Substance use type: marijuana, opiates and prescription drug Housing: homeless Do you feel safe in your relationship?: Yes Time Spent with Patient Time Spent with Patient: <45 minutes Time was spent: preparing to see the patient(eg.review tests), obtaining and/or reviewing separately otained hiistory, ordering medications,tests, procedures, referring, communicating with other health child care teacher, indepentently interpreting results, counseling the patient and care coordination
--- NOTE | 2024-10-14 11:20 | W.PM.PROGNOT ---
Date of Service Date of service: 10/14/24 Time of Service: 11:20 Assessment and Plan Assessment and plan (1) Chronic wound: Status: Acute Assessment and plan: I do not have time to complete a formal consultation at this point, but with regards to the actual bleeding site, it appears to be venous, and should resolve with replacement of an Unna boot. It easily controlled with minimal pressure, and appears hemostatic with simple gauze. This was used to dress the wound, and a standard Unna boot was applied over top. There was no evidence of any bleeding through it after immediate application. I recommend observation for short course, and some ambulation to ensure that René is comfortable. Obviously, if he has any significant bleeding after discharge, he is always welcome to come back to the emergency department. Subjective Subjective Interval history since last seen: René had some bleeding from the posterior aspect of his left calf wound. I was asked to check on this, as he was getting ready to be discharged from the hospital. Very briefly, he has a chronic wound covering the whole backside of his left calf. He tells me that he typically manages this with Unna boots. Exam Skin Other: There is a large wound on the posterior and lateral aspects of the left calf. There are skin changes consistent with peripheral arterial disease. There is no palpable pulse at the posterior tibial, or the dorsalis pedis. The wound bed is healthy granulation tissue, there are no signs of infection. There is a punctate area of ulceration on the lateral aspect of the left foot. This looks clean. There was no bleeding when I began examining, but after irrigation and some superficial debridement. A small thrombus was rinsed off the posterior calf, and the bleeding resumed. Is a dark nonpulsatile small vessel bleeding. Objective Last Vital Signs Temp 99.3 F 10/14/24 07:37 Pulse 84 10/14/24 07:37 Resp 18 10/14/24 00:24 BP 126/74 10/14/24 07:37 Pulse Ox 100 10/14/24 07:37 Laboratory Results - last 24 hr 10/13/24 10/13/24 10/14/24 12:15 19:07 01:26 PT INR APTT 84.4 H* 73.5 H 77.3 H Sodium Potassium Chloride Carbon Dioxide Anion Gap BUN Creatinine Est GFR (CKD-EPI 2020) Glucose Calcium Magnesium Total Bilirubin AST ALT Alkaline Phosphatase Total Protein Albumin TSH 1.87 10/14/24 05:50 PT 12.1 H INR 1.2 H APTT Sodium 133 L Potassium 3.8 Chloride 101 Carbon Dioxide 29.1 Anion Gap 2.9 L BUN 7 Creatinine 0.6 L Est GFR (CKD-EPI 2020) 114.00 Glucose 93 Calcium 7.6 L Magnesium 1.4 L Total Bilirubin 0.4 AST 57 H ALT 33 Alkaline Phosphatase 117 H Total Protein 7.6 Albumin 1.1 L TSH PAWSS Have you Been Recently Intoxicated or Drunk Within the Last 30 days?: No Have you Ever Experienced Previous Episodes of Alcohol Withdrawal?: No Have you ever Experienced Withdrawal Seizures?: No Have you ever Experienced Delirium Tremens(DT)s?: No Have you ever undergone Alcohol Rehabilitation Treatment (i.e, inpt ot outpatient treatment programs)?: No Have you ever Experienced Blackouts?: No Have you ever Combined Alcohol with other Downers within the last 90 days?: No Have you ever Combined Alcohol with any other Substance of Abuse during the last 90 days?: No Positive Blood Alcohol level on Presentation? [PCS.BAL]: Yes Evidence of Increased Autonomic Activity (i.e. HR>120, tremor, sweating, agitation, nausea)?: No Result: 1 Time Spent with Patient Time Spent with Patient: <25 minutes Time was spent: counseling the patient
--- NOTE | 2024-10-14 15:41 | PDOC.CMDIS ---
Date of service: 10/14/24 Time of Service: 15:41 LACE Index Scoring Tool Questions: Length of Stay (in days): 2 Was the patient admitted via the E.D.?: Yes Comorbidities: Liver or Renal Disease E.D. Visits: 1 Answers: Total Score: 11 Risk of Readmission: High Risk Care Management Discharge Plan Reason for Hospitalization: cellulitis Discharge Plan: Percy will return home with new home health services for PT. He will be transported via private vehicle with family. He will follow up with his PCP and discharge plan of care. Patient/Family Education Needs: review discharge instructions, discuss Ask Me Three Services Needed at Discharge: Home Health Care Services
== END 2024-10-14 11:38 | disposition home health service (06) | DRG 300 ==
LOC: ER 20:06 → EDHOLD 21:39 → MS 10-13 11:36
PROVIDERS: Admitting Provider Family Medicine; Emergency Provider Nurse Practitioner Family; Responsible Provider Family Medicine; Visit Provider Family Medicine
DX: I83.022 Varicose veins of left lower extremity with ulcer of calf (principal); E87.1 Hypo-osmolality and hyponatremia; K76.6 Portal hypertension; Z59.00 Homelessness unspecified; L97.229 Non-pressure chronic ulcer of left calf with unspecified severity; E83.42 Hypomagnesemia; E87.6 Hypokalemia; R91.1 Solitary pulmonary nodule; F17.210 Nicotine dependence, cigarettes, uncomplicated; I87.2 Venous insufficiency (chronic) (peripheral); R16.2 Hepatomegaly with splenomegaly, not elsewhere classified; E86.0 Dehydration; F10.90 Alcohol use, unspecified, uncomplicated; F12.90 Cannabis use, unspecified, uncomplicated; F11.90 Opioid use, unspecified, uncomplicated
CPT/HCPCS: 00123; 36415; 75635; 80053; 80307; 85027; 85652; 87040; 87637; 93005; 96361; 96365; 96366; 96367; 99285; 80320; 81003; 81015; 82270; 83735; 83880; 84443; 85025; 85610; 85730; 86140; 93010; 93971; 99223; 99233; 99239; J0696; J1644; J3475; J3480; J3490; Q9967